=== PATIENT | female | born 1995 | race American Indian/Alaskan Native ===

== ENCOUNTER 2018-08-09 11:47 | Emergency (ER) | payer SELFPAY ==
[2018-08-09 12:07] VITALS: BP 135/94
--- NOTE | 2018-08-09 12:08 | Emergency Department Report ---
Blank Doc - Documentation Documentation: This is a 22-year-old female that presents with intermittent chest pain. Denies any raidation. Curretnly patient denies chest pain. Also has left lower back pain. This initial assessment/diagnostic orders/clinical plan/treatment(s) is/are subject to change based on patient's health status, clinical progression and re- assessment by fellow clinical providers in the ED. Further treatment and workup at subsequent clinical providers discretion. Patient/guardians urged not to elope from the ED as their condition may be serious if not clinically assessed and managed. Initial orders include: 1- Patient sent to [facility] for further evaluation and treatment 2- EKG 3- CXR
--- NOTE | 2018-08-09 12:42 | XRay Report ---
ROUTINE CHEST, TWO VIEWS: HISTORY: chest pain. The trachea, heart, mediastinal contour, lung becerra and bony thorax are unremarkable. IMPRESSION: Unremarkable chest x-ray.
--- NOTE | 2018-08-09 13:01 | Emergency Department Report ---
ED Chest Pain HPI - General Chief Complaint: Chest Pain Stated Complaint: CHEST PAIN Time Seen by Provider: 08/09/18 12:06 Source: patient Mode of arrival: Ambulatory Limitations: No Limitations - History of Present Illness Initial Comments: Ms. Buenrostro is a healthy 22-year-old male female who presents with chest pain and right-sided radiating to the back. She has sharp stinging type pain. Has had bilateral nipple tenderness. She has been under a lot of stress. She recently moved from clots were seen. He states that "people" are stressing her. MD Complaint: chest pain -: Gradual, week(s) (several) Onset: during rest Pain Location: right chest Severity: mild Quality: sharp Consistency: intermittent Improves With: nothing, rest Worsens With: nothing - Related Data Previous Rx's Medication Instructions Recorded Last Taken Type glipiZIDE [Glucotrol] 5 mg PO QDAY 14 Days #14 tablet 07/15/18 Unknown Rx metFORMIN [Glucophage] 500 mg PO BID 15 Days #30 tablet 07/15/18 Unknown Rx Allergies Allergy/AdvReac Type Severity Reaction Status Date / Time No Known Allergies Allergy Verified 08/09/18 12:04 Heart Score - HEART Score History: Slightly suspicious EKG: Normal Age: < 45 Risk factors: No known risk factors Troponin: < normal limit HEART Score: 0 ED Review of Systems ROS: Stated complaint: CHEST PAIN Other details as noted in HPI Comment: All other systems reviewed and negative Constitutional: denies: fever Eyes: denies: eye discharge Respiratory: denies: cough Cardiovascular: chest pain ED Past Medical Hx - Past Medical History Previous Medical History?: Yes Hx Hypertension: Yes Hx Diabetes: Yes - Surgical History Past Surgical History?: No - Social History Smoking Status: Never Smoker Substance Use Type: None - Medications Home Medications: Home Medications Medication Instructions Recorded Confirmed Last Taken Type glipiZIDE [Glucotrol] 5 mg PO QDAY 14 Days #14 tablet 07/15/18 Unknown Rx metFORMIN [Glucophage] 500 mg PO BID 15 Days #30 tablet 07/15/18 Unknown Rx ED Physical Exam - General Limitations: No Limitations General appearance: alert, in no apparent distress - Head Head exam: Present: atraumatic, normocephalic - Eye Eye exam: Present: normal appearance - ENT ENT exam: Present: mucous membranes moist - Neck Neck exam: Present: normal inspection, full ROM - Respiratory Respiratory exam: Present: normal lung sounds bilaterally. Absent: respiratory distress, wheezes, rales, rhonchi - Cardiovascular Cardiovascular Exam: Present: regular rate, normal rhythm, normal heart sounds. Absent: systolic murmur, diastolic murmur, rubs, gallop - GI/Abdominal GI/Abdominal exam: Present: soft, normal bowel sounds. Absent: distended, tenderness, guarding, rebound - Extremities Exam Extremities exam: Present: normal inspection - Back Exam Back exam: Present: normal inspection - Neurological Exam Neurological exam: Present: alert, oriented X3 - Psychiatric Psychiatric exam: Present: normal affect, normal mood - Skin Skin exam: Present: warm, dry, intact, normal color. Absent: rash ED Course Vital Signs 08/09/18 12:05 Temperature 98.7 F Pulse Rate 106 H Respiratory 16 Rate Blood Pressure 135/94 O2 Sat by Pulse 100 Oximetry ED Medical Decision Making - EKG Data 08/09/18 12:58 EKG obtained 1211 Normal sinus rhythm rate 90 beats a minute normal axis normal intervals no ST elevation right bundle branch block no signs of ischemia - Radiology Data Radiology results: report reviewed Chest x-ray according to radiology impression no acute process. - Medical Decision Making Ms. Buenrostro presents with migrating chest pain. PERC negative for PE. Possible chest wall pain due to prominent breast tissue. Strongly encouraged breast exam. EKG CXR unremarkable. Critical care attestation.: If time is entered above; I have spent that time in minutes in the direct care of this critically ill patient, excluding procedure time. ED Disposition Clinical Impression: Chest pain, Chest wall pain Disposition: DC- TO HOME OR SELFCARE Is pt being admited?: No Does the pt Need Aspirin: No Condition: Stable Instructions: Chest Pain (ED) Forms: Work/School Release Form(ED)
== END 2018-08-09 13:10 | disposition home or self-care (01) ==
LOC: ED 11:47
DX: R07.89 Other chest pain (principal); I10 Essential (primary) hypertension; E11.9 Type 2 diabetes mellitus without complications; Z79.84 Long term (current) use of oral hypoglycemic drugs
CPT/HCPCS: 71046; 93005; 93010

== ENCOUNTER 2018-09-06 11:06 | Emergency (ER) | payer OTHER ==
[2018-09-06] MEDS ORDERED: HumuLIN R IV ONE (11:41)
[2018-09-06] MEDS ORDERED: NACL 0.9% 1000 ML 1,000 ML IV ONE (11:41)
[2018-09-06] MEDS ORDERED: TORADOL IV ONE (11:42)
--- NOTE | 2018-09-06 11:45 | Emergency Department Report ---
ED General Adult HPI - General Chief complaint: Headache Stated complaint: HEADACHE/NAUSEA Source: patient Mode of arrival: Ambulatory Limitations: No Limitations - History of Present Illness Initial comments: This is a 22-year-old -[place] female who presents to the emergency room with nausea, vomiting, any headache since this morning. Patient reports symptoms started Thursday while working she felt dizzy and nauseous without vomiting. When she woke up this morning she had an headache and vomiting. Patient states she been off glipizide for several weeks because she doesn't have insurance or a primary care doctor. Her last menstrual cycle was 08/24/2018 and 0. She also reports diarrhea which she thought was related to metformin. She denies abdominal pain, urinary frequency, urgency, dysuria, fever, chills. -: This morning Location: head Radiation: non-radiation Severity scale (0 -10): 8 Quality: other (throbbing) Consistency: constant Improves with: none Worsens with: none Associated Symptoms: headaches, nausea/vomiting. denies: confusion, chest pain, cough, diaphoresis, fever/chills, loss of appetite, malaise, rash, seizure, shortness of breath, syncope, weakness Treatments Prior to Arrival: NSAID - Related Data Previous Rx's Medication Instructions Recorded Last Taken Type RX: glipiZIDE [Glucotrol] 5 mg PO QDAY 14 Days #14 tablet 07/15/18 Unknown Rx RX: metFORMIN [Glucophage] 500 mg PO BID 15 Days #30 tablet 07/15/18 Unknown Rx Ondansetron [Zofran Odt] 4 mg PO Q8HR PRN #15 tab.rapdis 09/06/18 Unknown Rx RX: glipiZIDE [Glucotrol] 5 mg PO QDAY #30 tablet 09/06/18 Unknown Rx RX: metFORMIN [Glucophage] 500 mg PO BID #60 tablet 09/06/18 Unknown Rx Allergies Allergy/AdvReac Type Severity Reaction Status Date / Time No Known Allergies Allergy Verified 08/09/18 12:04 ED Review of Systems ROS: Stated complaint: HEADACHE/NAUSEA Other details as noted in HPI Constitutional: denies: chills, fever ENT: denies: ear pain, throat pain Respiratory: denies: cough, shortness of breath, wheezing Cardiovascular: denies: chest pain, palpitations Gastrointestinal: nausea, vomiting. denies: abdominal pain, diarrhea Skin: denies: rash, lesions Neurological: headache. denies: weakness, paresthesias Psychiatric: denies: anxiety, depression ED Past Medical Hx - Past Medical History Previous Medical History?: Yes Hx Hypertension: Yes Hx Diabetes: Yes - Surgical History Past Surgical History?: No - Social History Smoking Status: Never Smoker Substance Use Type: None - Medications Home Medications: Home Medications Medication Instructions Recorded Confirmed Last Taken Type RX: glipiZIDE [Glucotrol] 5 mg PO QDAY 14 Days #14 tablet 07/15/18 Unknown Rx RX: metFORMIN [Glucophage] 500 mg PO BID 15 Days #30 tablet 07/15/18 Unknown Rx Ondansetron [Zofran Odt] 4 mg PO Q8HR PRN #15 tab.rapdis 09/06/18 Unknown Rx RX: glipiZIDE [Glucotrol] 5 mg PO QDAY #30 tablet 09/06/18 Unknown Rx RX: metFORMIN [Glucophage] 500 mg PO BID #60 tablet 09/06/18 Unknown Rx ED Physical Exam - General Limitations: No Limitations General appearance: alert, in no apparent distress, obese (morbidly) - ENT ENT exam: Present: mucous membranes moist - Respiratory Respiratory exam: Present: normal lung sounds bilaterally. Absent: respiratory distress - Cardiovascular Cardiovascular Exam: Present: regular rate, normal rhythm. Absent: systolic murmur, diastolic murmur, rubs, gallop - GI/Abdominal GI/Abdominal exam: Present: soft, normal bowel sounds, other (obese abdomen). Absent: distended, tenderness, guarding, rebound, rigid - Neurological Exam Neurological exam: Present: alert, oriented X3, normal gait - Psychiatric Psychiatric exam: Present: normal affect, normal mood - Skin Skin exam: Present: warm, dry, intact, normal color. Absent: rash ED Course Vital Signs 09/06/18 11:12 Temperature 98.1 F Pulse Rate 91 H Respiratory 18 Rate Blood Pressure 163/81 O2 Sat by Pulse 99 Oximetry ED Medical Decision Making - Lab Data Result diagrams: 09/06/18 12:32 09/06/18 12:32 Lab Results 09/06/18 09/06/18 09/06/18 Range/Units 11:17 12:32 12:32 WBC 7.2 (4.5-11.0) K/mm3 RBC 4.76 (3.65-5.03) M/mm3 Hgb 13.0 (10.1-14.3) gm/dl Hct 39.2 (30.3-42.9) % MCV 83 (79-97) fl MCH 27 L (28-32) pg MCHC 33 (30-34) % RDW 13.4 (13.2-15.2) % Plt Count 291 (140-440) K/mm3 Lymph % (Auto) 33.9 (13.4-35.0) % [place] % (Auto) 2.9 (0.0-7.3) % Eos % (Auto) 0.8 (0.0-4.3) % Baso % (Auto) 0.7 (0.0-1.8) % Lymph # 2.5 (1.2-5.4) K/mm3 [place] # 0.2 (0.0-0.8) K/mm3 Eos # 0.1 (0.0-0.4) K/mm3 Baso # 0.1 (0.0-0.1) K/mm3 Seg Neutrophils % 61.7 (40.0-70.0) % Seg Neutrophils # 4.5 (1.8-7.7) K/mm3 Sodium 135 L (137-145) mmol/L Potassium 4.6 (3.6-5.0) mmol/L Chloride 100.3 (98-107) mmol/L Carbon Dioxide 22 (22-30) mmol/L Anion Gap 17 mmol/L BUN 8 (7-17) mg/dL Creatinine 0.4 L (0.7-1.2) mg/dL Estimated GFR > 60 ml/min BUN/Creatinine Ratio 20 % Glucose 328 H (65-100) mg/dL POC Glucose 341 H (70-105) Calcium 8.0 L (8.4-10.2) mg/dL HCG, Qual (Negative) 09/06/18 09/06/18 Range/Units 12:32 13:59 WBC (4.5-11.0) K/mm3 RBC (3.65-5.03) M/mm3 Hgb (10.1-14.3) gm/dl Hct (30.3-42.9) % MCV (79-97) fl MCH (28-32) pg MCHC (30-34) % RDW (13.2-15.2) % Plt Count (140-440) K/mm3 Lymph % (Auto) (13.4-35.0) % [place] % (Auto) (0.0-7.3) % Eos % (Auto) (0.0-4.3) % Baso % (Auto) (0.0-1.8) % Lymph # (1.2-5.4) K/mm3 [place] # (0.0-0.8) K/mm3 Eos # (0.0-0.4) K/mm3 Baso # (0.0-0.1) K/mm3 Seg Neutrophils % (40.0-70.0) % Seg Neutrophils # (1.8-7.7) K/mm3 Sodium (137-145) mmol/L Potassium (3.6-5.0) mmol/L Chloride (98-107) mmol/L Carbon Dioxide (22-30) mmol/L Anion Gap mmol/L BUN (7-17) mg/dL Creatinine (0.7-1.2) mg/dL Estimated GFR ml/min BUN/Creatinine Ratio % Glucose (65-100) mg/dL POC Glucose 268 H (70-105) Calcium (8.4-10.2) mg/dL HCG, Qual Negative (Negative) - Medical Decision Making This is a 22 y.o. female that presents with headache, nausea, and vomiting. History of DM2 and hypertension. Patient is currently only taken metformin at this time. Patient states she doesn't have a PCP or insurance to follow up with. Patient was examined by this provider. Obtained BMP, CBC, and hCG. Review labs. Glucose 341 on admission. Given Regular insulin 7 units twice, NS 1L bolus once, and Toradol. Glucose 268 after treatment and reports feeling better. Start metformin, glipizide, Zofran. Referral to [facility] for follow-up. Discussed plan with patient and agreed to plan. No further questions noted by the patient. Discharged home in stable condition. Critical care attestation.: If time is entered above; I have spent that time in minutes in the direct care of this critically ill patient, excluding procedure time. ED Disposition Clinical Impression: Nausea and vomiting in adult, Gastroenteritis, Elevated glucose Migraine Qualifiers: Migraine type: without aura Status migrainosus presence: with status migrainosus Intractability: not intractable Qualified Code(s): G43.001 - Migraine without aura, not intractable, with status migrainosus Uncontrolled diabetes mellitus Qualifiers: Diabetes mellitus type: type 2 Glycemic state: with hyperglycemia Qualified Code(s): E11.65 - Type 2 diabetes mellitus with hyperglycemia Disposition: DC-01 TO HOME OR SELFCARE Is pt being admited?: No Does the pt Need Aspirin: No Condition: Stable Instructions: Diabetes Mellitus Type 2 in Adults (ED), Gastroenteritis (ED), Acute Nausea and Vomiting (ED) Additional Instructions: Never discontinue medication without discussion with doctor first. Return to ER or f/u with ER promptly is blood glucose drops below 70 or greater than 150 so that therapy may be adjusted. Eat a carbohydrate snack prior to exercise if blood glucose is less than 100. Follow up with Primary Care Provider from the referral list below in the next 3- 5 days. Prescriptions: RX: metFORMIN [Glucophage] 500 mg PO BID #60 tablet RX: glipiZIDE [Glucotrol] 5 mg PO QDAY #30 tablet Ondansetron [Zofran Odt] 4 mg PO Q8HR PRN #15 tab.rapdis PRN Reason: Nausea And Vomiting Referrals: [facility] [Outside] - 3-5 Days [facility] [Outside] - 3-5 Days [facility] [Outside] - 3-5 Days Forms: Work/School Release Form(ED) Time of Disposition: 14:24
[2018-09-06 12:41] LABS: Basophils # (Auto) 0.1 K/mm3 (0.0-0.1); Basophils % (Auto) 0.7 % (0.0-1.8); Eosinophils # (Auto) 0.1 K/mm3 (0.0-0.4); Eosinophils % (Auto) 0.8 % (0.0-4.3); Hematocrit 39.2 % (30.3-42.9); Lymphocytes # (Auto) 2.5 K/mm3 (1.2-5.4); Lymphocytes % (Auto) 33.9 % (13.4-35.0); Mean Corpuscular HGB Conc 33 % (30-34); Mean Corpuscular Volume 83 fl (79-97); Monocytes # (Auto) 0.2 K/mm3 (0.0-0.8); Monocytes % (Auto) 2.9 % (0.0-7.3); Platelet Count 291 K/mm3 (140-440); Red Blood Count 4.76 M/mm3 (3.65-5.03); Red Cell Distribution Width 13.4 % (13.2-15.2)
[2018-09-06 13:01] LABS: BUN/Creatinine Ratio 20; Blood Urea Nitrogen 8 mg/dL (7-17); Hemolysis Index 129
[2018-09-06 14:45] VITALS: BP 129/75
== END 2018-09-06 14:43 | disposition home or self-care (01) ==
LOC: ED 11:06
DX: K52.9 Noninfective gastroenteritis and colitis, unspecified (principal); E11.65 Type 2 diabetes mellitus with hyperglycemia; G43.001 Migraine without aura, not intractable, with status migrainosus; I10 Essential (primary) hypertension; Z79.84 Long term (current) use of oral hypoglycemic drugs
CPT/HCPCS: 36415; 80048; 82962; 84703; 85025; 96361; 96374; 96375; 99283; J1885; J7030; J1815

== ENCOUNTER 2018-09-13 11:23 | Emergency (ER) | payer OTHER ==
[2018-09-13 11:46] VITALS: BP 147/77
--- NOTE | 2018-09-13 11:46 | Event Note ---
ED Screening Note ED Screening Note: pt presents with nausea for a week frontal MEJÍA no emesis no fever states she got a rash to zofran that she was prescribed last week, rash resolved on its own PMHx DM This initial assessment/diagnostic orders/clinical plan/treatment(s) is/are subject to change based on patients health status, clinical progression and re- assessment by fellow clinical providers in the ED. Further treatment and workup at subsequent clinical providers discretion. Patient/guardian urged not to elope from the ED as their condition may be serious if not clinically assessed and managed. Initial orders include: UA, urine preg, accucheck
[2018-09-13 12:39] LABS: Bilirubin,Urine NEG (Negative); Blood,Urine NEG (Negative); Color,Urine Yellow (Yellow); Mucus,Urine FEW /HPF; Protein,Urine <15 mg/dL mg/dL (Negative); Urobilinogen,Urine < 2.0 mg/dL (<2.0)
[2018-09-13 12:58] LABS: HCG Qualitative,Urine Negative (Negative)
[2018-09-13] MEDS ORDERED: REGLAN IV ONE (12:58)
[2018-09-13] MEDS ORDERED: NACL 0.9% 1000 ML 1,000 ML IV ONE (12:58)
[2018-09-13] MEDS ORDERED: PEPCID IV ONE (12:58)
[2018-09-13] MEDS ORDERED: ZOFRAN IV ONE (12:58)
--- NOTE | 2018-09-13 14:20 | Emergency Department Report ---
ED Abdominal Pain HPI - General Chief Complaint: Nausea/Vomiting/Diarrhea Stated Complaint: NAUSEA/ALLERGIC REACTION/RASH Time Seen by Provider: 09/13/18 11:43 Source: patient Mode of arrival: Ambulatory Limitations: No Limitations - History of Present Illness Initial Comments: Patient is a 22-year-old Female who is presenting with some mild nausea and epigastric discomfort for the past 2 weeks. Patient was here several weeks ago and needed refill of his diabetes medications. Patient also has some gastroparesis/gastritis present. Patient started on Zofran. Patient states since she's been taking Zofran been having a lot of itching. Patient states that she has a faint rash. Patient stopped taking Zofran and states that her itching is improved. Patient denies any difficulty swallowing shortness of breath at this time. - Related Data Previous Rx's Medication Instructions Recorded Last Taken Type glipiZIDE [Glucotrol] 5 mg PO QDAY 14 Days #14 tablet 07/15/18 Unknown Rx metFORMIN [Glucophage] 500 mg PO BID 15 Days #30 tablet 07/15/18 Unknown Rx Ondansetron [Zofran Odt] 4 mg PO Q8HR PRN #15 tab.rapdis 09/06/18 Unknown Rx glipiZIDE [Glucotrol] 5 mg PO QDAY #30 tablet 09/06/18 Unknown Rx metFORMIN [Glucophage] 500 mg PO BID #60 tablet 09/06/18 Unknown Rx Famotidine [Pepcid] 40 mg PO QHS #10 tablet 09/13/18 Unknown Rx Metoclopramide HCl [Reglan TAB] 5 mg PO TIDAC #10 tablet 09/13/18 Unknown Rx Allergies Allergy/AdvReac Type Severity Reaction Status Date / Time ondansetron [From Zofran] AdvReac Rash Verified 09/13/18 13:44 ED Review of Systems ROS: Stated complaint: NAUSEA/ALLERGIC REACTION/RASH Other details as noted in HPI Comment: All other systems reviewed and negative ED Past Medical Hx - Past Medical History Previous Medical History?: Yes Hx Hypertension: Yes Hx Diabetes: Yes - Surgical History Past Surgical History?: No - Social History Smoking Status: Never Smoker Substance Use Type: None - Medications Home Medications: Home Medications Medication Instructions Recorded Confirmed Last Taken Type glipiZIDE [Glucotrol] 5 mg PO QDAY 14 Days #14 tablet 07/15/18 Unknown Rx metFORMIN [Glucophage] 500 mg PO BID 15 Days #30 tablet 07/15/18 Unknown Rx Ondansetron [Zofran Odt] 4 mg PO Q8HR PRN #15 tab.rapdis 09/06/18 Unknown Rx glipiZIDE [Glucotrol] 5 mg PO QDAY #30 tablet 09/06/18 Unknown Rx metFORMIN [Glucophage] 500 mg PO BID #60 tablet 09/06/18 Unknown Rx Famotidine [Pepcid] 40 mg PO QHS #10 tablet 09/13/18 Unknown Rx Metoclopramide HCl [Reglan TAB] 5 mg PO TIDAC #10 tablet 09/13/18 Unknown Rx ED Physical Exam - General Limitations: No Limitations General appearance: alert, in no apparent distress - Head Head exam: Present: atraumatic, normocephalic - Eye Eye exam: Present: normal appearance - ENT ENT exam: Present: mucous membranes moist - Neck Neck exam: Present: normal inspection - Respiratory Respiratory exam: Present: normal lung sounds bilaterally. Absent: respiratory distress, wheezes, rales, rhonchi - Cardiovascular Cardiovascular Exam: Present: regular rate, normal rhythm. Absent: systolic murmur, diastolic murmur, rubs, gallop - GI/Abdominal GI/Abdominal exam: Present: soft, tenderness (mild epigastric ), normal bowel sounds. Absent: distended, guarding, rebound, rigid - Extremities Exam Extremities exam: Present: normal inspection - Back Exam Back exam: Present: normal inspection - Neurological Exam Neurological exam: Present: alert, oriented X3 - Psychiatric Psychiatric exam: Present: normal affect, normal mood - Skin Skin exam: Present: warm, dry, intact, normal color. Absent: rash ED Course Vital Signs 09/13/18 11:44 Temperature 98.5 F Pulse Rate 84 Respiratory 18 Rate Blood Pressure 147/77 O2 Sat by Pulse 99 Oximetry ED Medical Decision Making - Lab Data Lab Results 09/13/18 09/13/18 Range/Units 11:55 Unknown POC Glucose 252 H (70-105) Urine Color Yellow (Yellow) Urine Turbidity Clear (Clear) Urine pH 6.0 (5.0-7.0) Ur Specific [place] 1.017 (1.003-1.030) Urine Protein <15 mg/dl (Negative) mg/dL Urine Glucose (UA) >=500 (Negative) mg/dL Urine Ketones Neg (Negative) mg/dL Urine Blood Neg (Negative) Urine Nitrite Neg (Negative) Urine Bilirubin Neg (Negative) Urine Urobilinogen < 2.0 (<2.0) mg/dL Ur Leukocyte Esterase Neg (Negative) Urine WBC (Auto) 1.0 (0.0-6.0) /HPF Urine RBC (Auto) 1.0 (0.0-6.0) /HPF U Epithel Cells (Auto) 3.0 (0-13.0) /HPF Urine Mucus Few /HPF Urine HCG, Qual Negative (Negative) - Medical Decision Making Patient did have a slight elevation of her glucose. Patient given IV fluids. Patient started on Reglan and she did well with this medication. Patient be discharged home with Reglan and patient will have her Connie DC'd. Patient follow-up with gastroenterology. Critical care attestation.: If time is entered above; I have spent that time in minutes in the direct care of this critically ill patient, excluding procedure time. ED Disposition Clinical Impression: Hyperglycemia, Drug allergy Gastritis Qualifiers: Gastritis type: unspecified gastritis Chronicity: acute Gastritis bleeding: without bleeding Qualified Code(s): K29.00 - Acute gastritis without bleeding Disposition: DC-01 TO HOME OR SELFCARE Is pt being admited?: No Does the pt Need Aspirin: No Condition: Stable Instructions: Gastritis (ED) Referrals: YURIDIA SALINAS MD [Staff Physician] - 3-5 Days Time of Disposition: 14:19
== END 2018-09-13 14:52 | disposition home or self-care (01) ==
LOC: ED 11:23
DX: K29.00 Acute gastritis without bleeding (principal); E11.65 Type 2 diabetes mellitus with hyperglycemia; I10 Essential (primary) hypertension; Z79.899 Other long term (current) drug therapy; Z88.8 Allergy status to other drugs, medicaments and biological substances
CPT/HCPCS: 81001; 81025; 82962; 96361; 96374; 96375; 99283; J2405; J2765; J7030

== ENCOUNTER 2018-11-12 11:03 | Emergency (ER) | payer SELFPAY ==
[2018-11-12 11:34] VITALS: BP 134/91
--- NOTE | 2018-11-12 11:37 | Emergency Department Report ---
- General Chief complaint: Pain General Stated complaint: DISCOMFORT IN BOTH BREASTS Time Seen by Provider: 11/12/18 11:35 Source: patient Mode of arrival: Ambulatory Limitations: No Limitations - History of Present Illness Initial comments: 23 y/o female comes for breast itching that is intermittent. No new food, no new clothes no new detergents. No redness no rashes. No discharge. Onset/Timin -: days(s) Tetanus Up to Date: unsure Severity scale (0 -10): 0 Quality: other (itching) Consistency: intermittent Improves with: none Worsens with: none Associated symptoms: denies other symptoms, itching Treatments Prior to Arrival: none - Related Data Previous Rx's Medication Instructions Recorded Last Taken Type glipiZIDE [Glucotrol] 5 mg PO QDAY 14 Days #14 tablet 07/15/18 Unknown Rx metFORMIN [Glucophage] 500 mg PO BID 15 Days #30 tablet 07/15/18 Unknown Rx Ondansetron [Zofran Odt] 4 mg PO Q8HR PRN #15 tab.rapdis 09/06/18 Unknown Rx glipiZIDE [Glucotrol] 5 mg PO QDAY #30 tablet 09/06/18 Unknown Rx metFORMIN [Glucophage] 500 mg PO BID #60 tablet 09/06/18 Unknown Rx Famotidine [Pepcid] 40 mg PO QHS #10 tablet 09/13/18 Unknown Rx Metoclopramide HCl [Reglan TAB] 5 mg PO TIDAC #10 tablet 09/13/18 Unknown Rx Allergies Allergy/AdvReac Type Severity Reaction Status Date / Time ondansetron [From Zofran] AdvReac Rash Verified 11/12/18 11:06 Abscess Boil HPI - HPI Chief Complaint: Pain General Stated Complaint: DISCOMFORT IN BOTH BREASTS Time Seen by Provider: 11/12/18 11:35 Home Medications: Previous Rx's Medication Instructions Recorded Last Taken Type glipiZIDE [Glucotrol] 5 mg PO QDAY 14 Days #14 tablet 07/15/18 Unknown Rx metFORMIN [Glucophage] 500 mg PO BID 15 Days #30 tablet 07/15/18 Unknown Rx Ondansetron [Zofran Odt] 4 mg PO Q8HR PRN #15 tab.rapdis 09/06/18 Unknown Rx glipiZIDE [Glucotrol] 5 mg PO QDAY #30 tablet 09/06/18 Unknown Rx metFORMIN [Glucophage] 500 mg PO BID #60 tablet 09/06/18 Unknown Rx Famotidine [Pepcid] 40 mg PO QHS #10 tablet 09/13/18 Unknown Rx Metoclopramide HCl [Reglan TAB] 5 mg PO TIDAC #10 tablet 09/13/18 Unknown Rx Allergies/Adverse Reactions: Allergies Allergy/AdvReac Type Severity Reaction Status Date / Time ondansetron [From Zofran] AdvReac Rash Verified 11/12/18 11:06 ED Review of Systems ROS: Stated complaint: DISCOMFORT IN BOTH BREASTS Other details as noted in HPI Comment: All other systems reviewed and negative Constitutional: denies: chills, fever Eyes: denies: eye pain, eye discharge, vision change ENT: denies: ear pain, throat pain Respiratory: denies: cough, shortness of breath, wheezing Cardiovascular: denies: chest pain, palpitations ED Past Medical Hx - Past Medical History Previous Medical History?: Yes Hx Hypertension: Yes Hx Diabetes: Yes - Surgical History Past Surgical History?: No - Social History Smoking Status: Never Smoker Substance Use Type: None - Medications Home Medications: Home Medications Medication Instructions Recorded Confirmed Last Taken Type glipiZIDE [Glucotrol] 5 mg PO QDAY 14 Days #14 tablet 07/15/18 Unknown Rx metFORMIN [Glucophage] 500 mg PO BID 15 Days #30 tablet 07/15/18 Unknown Rx Ondansetron [Zofran Odt] 4 mg PO Q8HR PRN #15 tab.rapdis 09/06/18 Unknown Rx glipiZIDE [Glucotrol] 5 mg PO QDAY #30 tablet 09/06/18 Unknown Rx metFORMIN [Glucophage] 500 mg PO BID #60 tablet 09/06/18 Unknown Rx Famotidine [Pepcid] 40 mg PO QHS #10 tablet 09/13/18 Unknown Rx Metoclopramide HCl [Reglan TAB] 5 mg PO TIDAC #10 tablet 09/13/18 Unknown Rx ED Physical Exam - General Limitations: No Limitations General appearance: alert, in no apparent distress - Head Head exam: Present: atraumatic, normocephalic - Eye Eye exam: Present: normal appearance - ENT ENT exam: Present: mucous membranes moist - Neck Neck exam: Present: normal inspection - Respiratory Respiratory exam: Present: normal lung sounds bilaterally, chest wall tenderness (Breast no erythmatous, non tenderness no discharge normal ). Absent: respiratory distress - Cardiovascular Cardiovascular Exam: Present: regular rate, normal rhythm. Absent: systolic murmur, diastolic murmur, rubs, gallop - GI/Abdominal GI/Abdominal exam: Present: soft, normal bowel sounds - Neurological Exam Neurological exam: Present: alert, oriented X3, normal gait - Psychiatric Psychiatric exam: Present: normal affect, normal mood - Skin Skin exam: Present: warm, dry, intact, normal color. Absent: rash ED Course Vital Signs 11/12/18 11:31 Temperature 98.3 F Pulse Rate 79 Respiratory 18 Rate Blood Pressure 134/91 [Right] O2 Sat by Pulse 99 Oximetry ED Medical Decision Making - Medical Decision Making 23 y/o female comes for breast itching that is intermittent. No new food, no new clothes no new detergents. No redness no rashes. No discharge. Recommend to wear cotton bras. Will check HCG. Critical care attestation.: If time is entered above; I have spent that time in minutes in the direct care of this critically ill patient, excluding procedure time. ED Disposition Clinical Impression: Acute breast pain Disposition: DC-01 TO HOME OR SELFCARE Is pt being admited?: No Does the pt Need Aspirin: No Condition: Stable Instructions: Chest Pain (ED) Additional Instructions: Try wearing cotton bras and follow up with a Primary Care provider. You can take over the counter Tylenol as needed for discomfort. Referrals: SANTI MCCLELLAND MD [Primary Care Provider] - 3-5 Days
[2018-11-12 12:20] LABS: HCG Qualitative,Urine Negative (Negative)
== END 2018-11-12 12:21 | disposition home or self-care (01) ==
LOC: ED 11:03
DX: N64.4 Mastodynia (principal); I10 Essential (primary) hypertension; E11.9 Type 2 diabetes mellitus without complications; Z79.899 Other long term (current) drug therapy; Z88.6 Allergy status to analgesic agent
CPT/HCPCS: 81025

== ENCOUNTER 2019-12-31 16:19 | Emergency (ER) | payer SELFPAY | END 2019-12-31 17:35 | disposition left against medical advice (07) | LOC: ED 16:19 | DX: R10.2 Pelvic and perineal pain (principal); Z53.21 Procedure and treatment not carried out due to patient leaving prior to being seen by health care provider ==

== ENCOUNTER 2020-05-23 09:08 | Emergency (ER) | payer SELFPAY ==
[2020-05-23 09:16] VITALS: BP 155/94
[2020-05-23 09:48] LABS: Bilirubin,Urine NEG (Negative); Blood,Urine NEG (Negative); Color,Urine Yellow (Yellow); Mucus,Urine FEW /HPF; Protein,Urine <15 mg/dL mg/dL (Negative); RBC,Urine < 1.0 /HPF (0.0-6.0)
[2020-05-23 09:50] LABS: HCG Qualitative,Urine Negative (Negative)
== END 2020-05-23 10:58 | disposition left against medical advice (07) ==
LOC: ED 09:08
DX: R11.0 Nausea (principal); Z53.21 Procedure and treatment not carried out due to patient leaving prior to being seen by health care provider
CPT/HCPCS: 81001; 81025; 82962

== ENCOUNTER 2021-05-30 14:40 | Inpatient (IN) | payer SELFPAY ==
[2021-05-30] MEDS ORDERED: diphenhydrAMINE 50 MG/ML VIAL IV ONE (20:54)
[2021-05-30] MEDS ORDERED: FAMOTIDINE 20 MG/2 ML INJ IV ONE (20:54)
[2021-05-30] MEDS ORDERED: SODIUM CHLORIDE 0.9% 1000 ML 1,000 ML IV ONE ×2 (20:54→22:25)
[2021-05-30 21:12] LABS: Mean Corpuscular HGB Conc 30 % (30-34); Mean Corpuscular Volume 87 fl (79-97); Platelet Count 349 K/mm3 (140-440); Red Blood Count 6.18 M/mm3 (3.65-5.03); Red Cell Distribution Width 14.4 % (13.2-15.2)
--- NOTE | 2021-05-30 21:15 | Emergency Department Report ---
ED General Adult HPI - General Chief complaint: Nausea/Vomiting/Diarrhea Stated complaint: GENERAL WEAKNESS/N/V Time Seen by Provider: 05/30/21 20:46 Source: patient, EMS Mode of arrival: Stretcher Limitations: No Limitations - History of Present Illness Initial comments: Patient is a 25-year-old female presents emergency room complaints of nausea and vomiting that began yesterday. She states that she is having normal bowel movements and denies any blood in her stool. She states that she had a last bowel movement yesterday. Patient has upper abdominal discomfort and states that she has a history of gastritis. She denies any fever, chills, ashley tochezia, melena, hematemesis, urinary symptoms. He has a past medical history of diabetes and states that she does not take her Metformin because she does not like how it makes her feel. She states that she does not have a primary care physician. Allergy to Zofran. Severity scale (0 -10): 0 - Related Data Previous Rx's Medication Instructions Recorded Last Taken Type glipiZIDE [Glucotrol] 5 mg PO QDAY 14 Days #14 tablet 07/15/18 Unknown Rx metFORMIN [Glucophage] 500 mg PO BID 15 Days #30 tablet 07/15/18 Unknown Rx Ondansetron [Zofran Odt] 4 mg PO Q8HR PRN #15 tab.rapdis 09/06/18 Unknown Rx glipiZIDE [Glucotrol] 5 mg PO QDAY #30 tablet 09/06/18 Unknown Rx metFORMIN [Glucophage] 500 mg PO BID #60 tablet 09/06/18 Unknown Rx Famotidine [Pepcid] 40 mg PO QHS #10 tablet 09/13/18 Unknown Rx Metoclopramide HCl [Reglan TAB] 5 mg PO TIDAC #10 tablet 09/13/18 Unknown Rx Allergies Allergy/AdvReac Type Severity Reaction Status Date / Time ondansetron [From Zofran] AdvReac Rash Verified 05/23/20 09:12 ED Review of Systems ROS: Stated complaint: GENERAL WEAKNESS/N/V Other details as noted in HPI Comment: All other systems reviewed and negative ED Past Medical Hx - Past Medical History Hx Hypertension: Yes Hx Diabetes: Yes - Social History Smoking Status: Never Smoker Substance Use Type: None - Medications Home Medications: Home Medications Medication Instructions Recorded Confirmed Last Taken Type glipiZIDE [Glucotrol] 5 mg PO QDAY 14 Days #14 tablet 07/15/18 Unknown Rx metFORMIN [Glucophage] 500 mg PO BID 15 Days #30 tablet 07/15/18 Unknown Rx Ondansetron [Zofran Odt] 4 mg PO Q8HR PRN #15 tab.rapdis 09/06/18 Unknown Rx glipiZIDE [Glucotrol] 5 mg PO QDAY #30 tablet 09/06/18 Unknown Rx metFORMIN [Glucophage] 500 mg PO BID #60 tablet 09/06/18 Unknown Rx Famotidine [Pepcid] 40 mg PO QHS #10 tablet 09/13/18 Unknown Rx Metoclopramide HCl [Reglan TAB] 5 mg PO TIDAC #10 tablet 09/13/18 Unknown Rx ED Physical Exam - General Limitations: No Limitations General appearance: alert, in no apparent distress - Head Head exam: Present: atraumatic, normocephalic - Eye Eye exam: Present: normal appearance - ENT ENT exam: Present: mucous membranes dry - Respiratory Respiratory exam: Present: normal lung sounds bilaterally. Absent: respiratory distress, wheezes, rales, rhonchi, stridor, chest wall tenderness, accessory mus alyssa use, decreased breath sounds, prolonged expiratory - Cardiovascular Cardiovascular Exam: Present: normal rhythm, tachycardia - GI/Abdominal GI/Abdominal exam: Present: soft, normal bowel sounds. Absent: distended, ten derness, guarding, rebound, rigid - Neurological Exam Neurological exam: Present: alert, oriented X3 - Psychiatric Psychiatric exam: Present: normal affect, normal mood - Skin Skin exam: Present: warm, dry, intact ED Course Vital Signs 05/30/21 14:47 Pulse Rate 120 H Respiratory 14 Rate Blood Pressure 152/92 [Left] O2 Sat by Pulse 98 Oximetry - Consultations Consultation #1: 05/30/21 22:[address] Rodriguez, accounting consultant regarding patient presentation results, he will consult on patient 05/30/21 22:[address] Abarca, hospitalist regarding patient presentation and results, he will accept and resume care of patient, advised to place patient on [facility] ED Medical Decision Making - Lab Data Result diagrams: 05/30/21 21:02 05/30/21 21:02 Lab Results 05/30/21 05/30/21 05/30/21 Range/Units 21:02 21:02 21:02 WBC 26.0 H (4.5-11.0) K/mm3 RBC 6.18 H (3.65-5.03) M/mm3 Hgb 16.1 H (10.1-14.3) gm/dl Hct 53.5 H (30.3-42.9) % MCV 87 (79-97) fl MCH 26 L (28-32) pg MCHC 30 (30-34) % RDW 14.4 (13.2-15.2) % Plt Count 349 (140-440) K/mm3 Seg Neutrophils % Bucket Turner VBG pH (7.320-7.420) Sodium 132 L (137-145) mmol/L Potassium 4.9 (3.6-5.0) mmol/L Chloride 100.0 (98-107) mmol/L Carbon Dioxide 5 L* (22-30) mmol/L Anion Gap 32 mmol/L BUN 17 (7-17) mg/dL Creatinine 0.8 (0.6-1.2) mg/dL Estimated GFR > 60 ml/min BUN/Creatinine Ratio 21 % Glucose 494 H (65-100) mg/dL Calcium 9.5 (8.4-10.2) mg/dL Total Bilirubin 0.60 (0.1-1.2) mg/dL AST 11 (5-40) units/L ALT 42 (7-56) units/L Alkaline Phosphatase 118 (35-129) units/L Total Protein 9.3 H (6.3-8.2) g/dL Albumin 4.7 (3.9-5) g/dL Albumin/Globulin Ratio 1.0 % Lipase 21 (13-60) units/L HCG, Qual Negative (Negative) 05/30/21 Range/Units 21:02 WBC (4.5-11.0) K/mm3 RBC (3.65-5.03) M/mm3 Hgb (10.1-14.3) gm/dl Hct (30.3-42.9) % MCV (79-97) fl MCH (28-32) pg MCHC (30-34) % RDW (13.2-15.2) % Plt Count (140-440) K/mm3 Seg Neutrophils % VBG pH 7.176 L* (7.320-7.420) Sodium (137-145) mmol/L Potassium (3.6-5.0) mmol/L Chloride (98-107) mmol/L Carbon Dioxide (22-30) mmol/L Anion Gap mmol/L BUN (7-17) mg/dL Creatinine (0.6-1.2) mg/dL Estimated GFR ml/min BUN/Creatinine Ratio % Glucose (65-100) mg/dL Calcium (8.4-10.2) mg/dL Total Bilirubin (0.1-1.2) mg/dL AST (5-40) units/L ALT (7-56) units/L Alkaline Phosphatase (35-129) units/L Total Protein (6.3-8.2) g/dL Albumin (3.9-5) g/dL Albumin/Globulin Ratio % Lipase (13-60) units/L HCG, Qual (Negative) - Radiology Data Radiology results: report reviewed Ordering Physician: SWAPNIL GALARZA Date of Service: 05/30/21 Procedure(s): CT abdomen pelvis w con Accession Number(s): [id number] cc: SWAPNIL GALARZA CT ABDOMEN AND PELVIS WITH INTRAVENOUS CONTRAST INDICATION / CLINICAL INFORMATION: Upper abdominal pain with nausea and vomiting. Elevated white blood cell count. TECHNIQUE: 100 cc Omnipaque [address] scans at this location are performed using CT dose reduction for ALARA by means of automated exposure control. COMPARISON: None available. FINDINGS: ABDOMEN: The liver measures 16 cm in length and demonstrates moderate generalized decreased density compared to the spleen without focal lesion. The gallbladder, bile ducts, pancreas, spleen, adrenal glands and kidneys are normal in appearance. There is no evidence of bowel obstruction, wall thickening or free air. No adenopathy is present. No vascular abnormality is seen. The lung bases are clear. PELVIS: The urinary bladder is significantly distended, extending to the top of the SI joints. The urinary bladder is otherwise unremarkable. The distal ureters are normal in appearance. The uterus and ovaries are normal in appearance. A normal appendix is present and there is no evidence of diverticulitis. No abnormal mass or fluid collection is seen. I do not identify a hernia. No acute osseous abnormality is present. IMPRESSION: 1. Significantly distended urinary bladder without a cause seen. 2. Borderline hepatomegaly with evidence of moderate diffuse fatty infiltration. Signer Name: Jose Matson MD Signed: 05/30/2021 10:36 PM Workstation Name: [id number] Transcribed By: RT Dictated By: Jose Matson MD Electronically Authenticated By: Jose Matson MD Signed Date/Time: 05/30/212235 DD/ 30 TD/TT: - Medical Decision Making Patient is a 25-year-old female presents emergency room complaints of nausea and vomiting that began yesterday. She states that she is having normal bowel movements and denies any blood in her stool. She states that she had a last bowel movement yesterday. Patient has upper abdominal discomfort and states that she has a history of gastritis. She denies any fever, chills, hematochezia, melena, hematemesis, urinary symptoms. He has a past medical history of diabetes and states that she does not take her Metformin because she does not like how it makes her feel. She states that she does not have a primary care physician. Allergy to Zofran. Vitals with tachycardia, otherwise stable. I was advised by Gildardo material assistant that her temperature is 99.0. Lab significant for white blood cell count 26,000, venous pH 7.1, CO2 5, blood glucose 494. Patient started on 2 L IV fluids, given medication, and initiated DKA order set with insulin drip. CT abdomen pelvis/IV contrast shows 1. S ignificantly distended urinary bladder without a cause seen. 2. Borderline hepatomegaly with evidence of moderate diffuse fatty infiltration. Patient states that she has had issues with her bladder for very long time but states that she is able to urinate without any difficulty. Discussed case with accounting consultant and patient admitted to hospitalist service. Discussed all findings with patient who is agreeable with plan. Critical Care Time: Yes Critical care time in (mins) excluding proc time.: 40 Critical care attestation.: If time is entered above; I have spent that time in minutes in the direct care of this critically ill patient, excluding procedure time. ED Disposition Clinical Impression: DKA (diabetic ketoacidosis) Qualifiers: Diabetes mellitus type: type 2 Diabetes mellitus complication detail: without coma Qualified Code(s): E11.10 - Type 2 diabetes mellitus with ketoacidosis without coma Leukocytosis Qualifiers: Leukocytosis type: unspecified Qualified Code(s): D72.829 - Elevated white blood cell count, unspecified Abdominal pain Qualifiers: Abdominal location: upper abdomen, unspecified Qualified Code(s): R10.10 - Upper abdominal pain, unspecified Nausea & vomiting Qualifiers: Vomiting type: unspecified Qualified Code(s): R11.2 - Nausea with vomiting, unspecified Disposition: 09 ADMITTED INPATIENT Is pt being admited?: Yes Does the pt Need Aspirin: No Condition: Critical Time of Disposition: 23:00
[2021-05-30 21:17] LABS: Hematocrit 53.5 % (30.3-42.9); Hemoglobin 16.1 gm/dl (10.1-14.3)
[2021-05-30 21:37] LABS: Alanine Aminotransferase 42 units/L (7-56); Albumin 4.7 g/dL (3.9-5); BUN/Creatinine Ratio 21; Blood Urea Nitrogen 17 mg/dL (7-17); Calcium 9.5 mg/dL (8.4-10.2); Hemolysis Index 18
[2021-05-30] MEDS: METOCLOPRAMIDE 10 MG/2 ML INJ IV ONE ×2 (21:39→21:41)
[2021-05-30] MEDS ORDERED: DEXTROSE 50% IN WATER (25GM) 50 ML SYRINGE IV PRN ×2 (21:41→23:14)
--- NOTE | 2021-05-30 22:41 | Cat Scan Report ---
CT ABDOMEN AND PELVIS WITH INTRAVENOUS CONTRAST INDICATION / CLINICAL INFORMATION: Upper abdominal pain with nausea and vomiting. Elevated white bloo d cell count. TECHNIQUE: 100 cc Omnipaque [address] scans at this location are performed using CT d ose reduction for ALARA by means of automated exposure control. COMPARISON: None available. FINDINGS: ABDOMEN: The liver measures 16 cm in length and demonstrates moderate generalized decreased density c ompared to the spleen without focal lesion. The gallbladder, bile ducts, pancreas, spleen, adrenal glands and kidneys are normal in appearance. T here is no evidence of bowel obstruction, wall thickening or free air. No adenopathy is present. No v ascular abnormality is seen. The lung bases are clear. PELVIS: The urinary bladder is significantly distended, extending to the top of the SI joints. The ur inary bladder is otherwise unremarkable. The distal ureters are normal in appearance. The uterus and ovaries are normal in appearance. A normal appendix is present and there is no evidenc e of diverticulitis. No abnormal mass or fluid collection is seen. I do not identify a hernia. No acu te osseous abnormality is present. IMPRESSION: 1. Significantly distended urinary bladder without a cause seen. 2. Borderline hepatomegaly with evidence of moderate diffuse fatty infiltration. Signer Name: Jose Matson MD Signed: 05/30/2021 10:36 PM Workstation Name: [id number]
[2021-05-30] MEDS ORDERED: PIPERACIL/TAZOBACTA 4.5/NS 100 4.5 GM/100 ML VIAL IV ONE (22:58)
[2021-05-30] MEDS ORDERED: HYDROmorphone 1 MG/1 ML INJ IV PRN (23:14)
[2021-05-30] MEDS ORDERED: ONDANSETRON 4 MG/2 ML INJ IV PRN (23:14)
[2021-05-30] MEDS ORDERED: ALBUTEROL 2.5 MG/3 ML NEBU IH PRN (23:14)
[2021-05-30] MEDS ORDERED: MORPHINE 2 MG/1 ML INJ IV PRN (23:14)
--- NOTE | 2021-05-30 23:21 | History and Physical Report ---
History of Present Illness Date of examination: 05/30/21 Date of admission: 05/30/21 Chief complaint: Nausea vomiting hyperglycemia History of present illness: 25-year-old female with history of diabetes and gastritis was brought to the emergency room because of nausea and vomiting that began yesterday. She states that she is having normal bowel movements and denies any blood in her stool. She states that she had a last bowel movement yesterday. She denies any fever, chills, hematochezia, melena, hematemesis, urinary symptoms. she does not take her Metformin because she does not like how it makes her feel. She states that she does not have a primary care physician. Allergy to Zofran. In the emergency room patient is found to have DKA. Patient blood glucose is 494, bicarb 5 anion gap 32. White blood cell 26.0. So going to admit the patient to the ICU. We put the patient on insulin drip IV fluid IV antibiotic and consult critical care Past History Past Medical History: diabetes, other Past Surgical History: No surgical history (Gastritis) Social history: other (No smoking) Family history: diabetes Medications and Allergies Allergies Allergy/AdvReac Type Severity Reaction Status Date / Time ondansetron [From Zofran] AdvReac Rash Verified 05/23/20 09:12 Home Medications Medication Instructions Recorded Confirmed Last Taken Type glipiZIDE [Glucotrol] 5 mg PO QDAY 14 Days #14 tablet 07/15/18 Unknown Rx metFORMIN [Glucophage] 500 mg PO BID 15 Days #30 tablet 07/15/18 Unknown Rx Ondansetron [Zofran Odt] 4 mg PO Q8HR PRN #15 tab.rapdis 09/06/18 Unknown Rx glipiZIDE [Glucotrol] 5 mg PO QDAY #30 tablet 09/06/18 Unknown Rx metFORMIN [Glucophage] 500 mg PO BID #60 tablet 09/06/18 Unknown Rx Famotidine [Pepcid] 40 mg PO QHS #10 tablet 09/13/18 Unknown Rx Metoclopramide HCl [Reglan TAB] 5 mg PO TIDAC #10 tablet 09/13/18 Unknown Rx Active Meds: Active Medications Dextrose (Dextrose 50% In Water (25gm) 50 Ml Syringe) 0 ml IV Q30MIN PRN; Protocol PRN Reason: Hypoglycemia Insulin Human Regular 100 (units/ Sodium Chloride) 100 mls @ 1 mls/hr IV TITR REFUGIO; Protocol Sodium Chloride (Nacl 0.9% 1000 Ml) 1,000 mls @ 999 mls/hr IV BOLUS ONE Stop: 05/30/21 23:25 Piperacillin Sod/Tazobactam Sod (Zosyn/Ns 4.5gm/100ml) 4.5 gm in 100 mls @ 200 mls/hr IV ONCE ONE; Protocol Stop: 05/30/21 23:27 Review of Systems Gastrointestinal: nausea, vomiting, diarrhea, heartburn, indigestion Exam - Constitutional Vitals: Temp Pulse Resp BP Pulse Ox 120 H 14 152/92 98 05/30/21 14:47 05/30/21 14:47 05/30/21 14:47 05/30/21 14:47 General appearance: Present: no acute distress, well-nourished - EENT Eyes: Present: PERRL ENT: hearing intact, clear oral mucosa - Neck Neck: Present: supple, normal ROM - Respiratory Respiratory effort: normal Respiratory: bilateral: diminished - Cardiovascular Heart Sounds: Present: S1 & S2. Absent: rub, click - Extremities Extremities: pulses symmetrical, No edema Peripheral Pulses: within normal limits - Abdominal General gastrointestinal: Present: soft, non-tender, non-distended, normal bowel sounds Female genitourinary: Present: normal - Integumentary Integumentary: Present: clear, warm, dry - Musculoskeletal Musculoskeletal: gait normal, strength equal bilaterally - Psychiatric Psychiatric: appropriate mood/affect, intact judgment & insight - Neurologic Neurologic: CNII-XII intact, moves all extremities Results - Labs CBC & Chem 7: 05/30/21 21:02 05/30/21 21:02 Labs: Laboratory Last Values WBC 26.0 K/mm3 (4.5-11.0) H 05/30/21 21:02 RBC 6.18 M/mm3 (3.65-5.03) H 05/30/21 21:02 Hgb 16.1 gm/dl (10.1-14.3) H 05/30/21 21:02 Hct 53.5 % (30.3-42.9) H 05/30/21 21:02 MCV 87 fl (79-97) 05/30/21 21:02 MCH 26 pg (28-32) L 05/30/21 21:02 MCHC 30 % (30-34) 05/30/21 21:02 RDW 14.4 % (13.2-15.2) 05/30/21 21:02 Plt Count 349 K/mm3 (140-440) 05/30/21 21:02 Seg Neutrophils % Transportation Program Director 05/30/21 21:02 VBG pH 7.176 (7.320-7.420) L* 05/30/21 21:02 Sodium 132 mmol/L (137-145) L 05/30/21 21:02 Potassium 4.9 mmol/L (3.6-5.0) 05/30/21 21:02 Chloride 100.0 mmol/L (98-107) 05/30/21 21:02 Carbon Dioxide 5 mmol/L (22-30) L* 05/30/21 21:02 Anion Gap 32 mmol/L 05/30/21 21:02 BUN 17 mg/dL (7-17) 05/30/21 21:02 Creatinine 0.8 mg/dL (0.6-1.2) 05/30/21 21:02 Estimated GFR > 60 ml/min 05/30/21 21:02 BUN/Creatinine Ratio 21 % 05/30/21 21:02 Glucose 494 mg/dL (65-100) H 05/30/21 21:02 Calcium 9.5 mg/dL (8.4-10.2) 05/30/21 21:02 Total Bilirubin 0.60 mg/dL (0.1-1.2) 05/30/21 21:02 AST 11 units/L (5-40) 05/30/21 21:02 ALT 42 units/L (7-56) 05/30/21 21:02 Alkaline Phosphatase 118 units/L (35-129) 05/30/21 21:02 Total Protein 9.3 g/dL (6.3-8.2) H 05/30/21 21:02 Albumin 4.7 g/dL (3.9-5) 05/30/21 21:02 Albumin/Globulin Ratio 1.0 % 05/30/21 21:02 Lipase 21 units/L (13-60) 05/30/21 21:02 HCG, Qual Negative (Negative) 05/30/21 21:02 - Imaging and Cardiology CT scan - abdomen: report reviewed Assessment and Plan VTE prophylaxis?: Chemical Plan of care discussed with patient/family: Yes - Patient Problems (1) DKA (diabetic ketoacidosis) Current Visit: Yes Status: Acute Qualifiers: Diabetes mellitus type: type 2 Diabetes mellitus complication detail: without coma Qualified Code(s): E11.10 - Type 2 diabetes mellitus with ketoacidosis without coma Plan to address problem: Admit the patient to the ICU. NPO. Half-normal saline at the rate of 150 cc/h. Insulin drip as per protocol. Serial BMP. Critical care evaluation (2) Gastritis Current Visit: Yes Status: Acute Plan to address problem: Pepcid 20 mg IV every 12 hours. We will monitor the patient closely (3) Abdominal pain Current Visit: Yes Status: Acute Qualifiers: Abdominal location: upper abdomen, unspecified Qualified Code(s): R10.10 - Upper abdominal pain, unspecified Plan to address problem: NPO. Half-normal saline at the rate of 150 cc/h. Pepcid 20 mg IV every 12 hours. Zofran 4 million IV every 6 hours as needed. Morphine 2 mg IV every 4 hours as needed (4) Nausea & vomiting Current Visit: Yes Status: Acute Qualifiers: Vomiting type: unspecified Qualified Code(s): R11.2 - Nausea with vomiting, unspecified Plan to address problem: NPO. Half-normal saline at the rate of 150 cc/h. Pepcid 20 mg IV every 12 hours. Zofran 4 million IV every 6 hours as needed. (5) Leukocytosis Current Visit: Yes Status: Acute Qualifiers: Leukocytosis type: unspecified Qualified Code(s): D72.829 - Elevated white blood cell count, unspecified Plan to address problem: Zosyn 4.5 g IV every 8 hours. Blood culture urine culture. Recheck CBC in the morning (6) DVT prophylaxis Current Visit: Yes Status: Acute Plan to address problem: Heparin 5000 units subcu every 12 hours for DVT prophylaxis. Pepcid 20 mg IV every 12 hours for GI prophylaxis. Patient is a full code
[2021-05-30] MEDS ORDERED: DEXTROSE 10% *Hypoglycemia IV PRN (23:22)
[2021-05-30] MEDS ORDERED: SODIUM CHLORIDE 0.45% 1000 ML 1,000 ML IV SCH (23:45)
[2021-05-30] MEDS ORDERED: INSULIN REGULAR, HUMAN 100 UNITS in SODIUM CHLORIDE 0.9% 99 ML IV SCH (23:45)
[2021-05-30] MEDS ORDERED: D5W/0.45% NACL/KCL 20 MEQ 20 MEQ/1,000 ML BAG IV SCH (23:45)
[2021-05-31 00:16] LABS: Blood Urea Nitrogen 16 mg/dL (7-17); Calcium 8.7 mg/dL (8.4-10.2); Hemolysis Index 16
[2021-05-31] MEDS: PIPERACIL/TAZOBACTA 4.5/NS 100 4.5 GM/100 ML VIAL IV SCH ×2 (00:20→08:55)
[2021-05-31 00:29] LABS: BUN/Creatinine Ratio 27
[2021-05-31] MEDS: INSULIN REGULAR, HUMAN 100 UNITS in SODIUM CHLORIDE 0.9% 99 ML IV SCH ×2 (02:27→20:25)
[2021-05-31 03:12] LABS: Mean Corpuscular HGB Conc 31 % (30-34); Mean Corpuscular Volume 85 fl (79-97); Platelet Count 348 K/mm3 (140-440); Red Blood Count 5.55 M/mm3 (3.65-5.03)
[2021-05-31 03:13] LABS: Hemoglobin 14.4 gm/dl (10.1-14.3)
[2021-05-31 03:30] LABS: Blood Urea Nitrogen 15 mg/dL (7-17); Calcium 8.4 mg/dL (8.4-10.2); Hemolysis Index 13
[2021-05-31 03:31] LABS: BUN/Creatinine Ratio 21
[2021-05-31] MEDS: METOCLOPRAMIDE 10 MG/2 ML INJ IV PRN ×2 (03:51→11:13)
[2021-05-31 03:59] LABS: Basophils % (Manual) 0 % (0.0-1.8); Eosinophils % (Manual) 0 % (0.0-4.3); Total Cells Counted 100
[2021-05-31 04:01] LABS: Anisocytosis 1+; Platelet Estimate Consistent w Auto
[2021-05-31 05:25] LABS: Blood Urea Nitrogen 14 mg/dL (7-17); Hemolysis Index 11
[2021-05-31 05:58] LABS: Basophils % (Manual) 0 % (0.0-1.8); Eosinophils % (Manual) 0 % (0.0-4.3); Total Cells Counted 100
[2021-05-31 05:59] LABS: Platelet Estimate Consistent w Auto; RBC Morphology Normal
[2021-05-31 06:04] LABS: BUN/Creatinine Ratio 20
[2021-05-31] MEDS ORDERED: D5W/0.45% NACL 1,000 ML IV SCH (07:00)
[2021-05-31 07:41] LABS: Blood Urea Nitrogen 14 mg/dL (7-17); Calcium 8.5 mg/dL (8.4-10.2); Hemolysis Index 75
[2021-05-31 07:47] LABS: BUN/Creatinine Ratio 23
[2021-05-31] MEDS: ACETAMINOPHEN 325 MG TAB PO PRN (08:55)
[2021-05-31] MEDS: FAMOTIDINE 20 MG/2 ML INJ IV SCH ×2 (09:07→22:48)
[2021-05-31] MEDS: HEPARIN 5,000 UNIT/1 ML VIAL SUB-Q SCH ×2 (09:07→22:48)
--- NOTE | 2021-05-31 09:07 | Progress Note ---
Assessment and Plan Assessment and plan: History of present illness: 25-year-old female with history of diabetes and gastritis was brought to the emergency room because of nausea and vomiting that began yesterday. She states that she is having normal bowel movements and denies any blood in her stool. She states that she had a last bowel movement yesterday. She denies any fever, chills, hematochezia, melena, hematemesis, urinary symptoms. she does not take her Metformin because she does not like how it makes her feel. She states that she does not have a primary care physician. Allergy to Zofran. In the emergency room patient is found to have DKA. Patient blood glucose is 494, bicarb 5 anion gap 32. White blood cell 26.0. So going to admit the patient to the ICU. We put the patient on insulin drip IV fluid IV antibiotic and consult critical care Hospital Course: 05/31: Monitor for gap closure. Last BMP shows GAP=19. Can initiate 20 units subq lantus once closed. IV insulin/D5W+K infusion for now. Unclear why she was initiated on abx. Will d/c zosyn for now. Assessment and Plan: (1) DKA (diabetic ketoacidosis) Current Visit: Yes Status: Acute Qualifiers: Diabetes mellitus type: type 2 Diabetes mellitus complication detail: w [facility] coma Qualified Code(s): E11.10 - Type 2 diabetes mellitus with ket oacidosis without coma Plan to address problem: Admit the patient to the ICU. NPO. Half-normal saline at the rate of 150 cc/h. Insulin drip as per protocol. Serial BMP. Critical care evaluation (2) Gastritis Current Visit: Yes Status: Acute Plan to address problem: Pepcid 20 mg IV every 12 hours. We will monitor the patient closely (3) Abdominal pain Current Visit: Yes Status: Acute Qualifiers: Abdominal location: upper abdomen, unspecified Qualified Code(s): R10.10 - Upper abdominal pain, unspecified Plan to address problem: NPO. Half-normal saline at the rate of 150 cc/h. Pepcid 20 mg IV every 12 hours. Zofran 4 million IV every 6 hours as needed. Morphine 2 mg IV every 4 hours as needed (4) Nausea & vomiting Current Visit: Yes Status: Acute Qualifiers: Vomiting type: unspecified Qualified Code(s): R11.2 - Nausea with vomiting, unspecified Plan to address problem: NPO. Half-normal saline at the rate of 150 cc/h. Pepcid 20 mg IV every 12 hours. Zofran 4 million IV every 6 hours as needed. (5) Leukocytosis Current Visit: Yes Status: Acute Qualifiers: Leukocytosis type: unspecified Qualified Code(s): D72.829 - Elevated white blood cell count, unspecified Plan to address problem: Zosyn 4.5 g IV every 8 hours. Blood culture urine culture. Recheck CBC in the morning (6) DVT prophylaxis Current Visit: Yes Status: Acute Plan to address problem: Heparin 5000 units subcu every 12 hours for DVT prophylaxis. Pepcid 20 mg IV every 12 hours for GI prophylaxis. Patient is a full code The high probability of a clinically significant, sudden or life threatening deterioration of the [multi] system(s) required my full and direct attention, intervention and personal management. The aggregate critical care time was [60] minutes. This time is in addition to time spent performing reported procedures but includes the following: [x] Data Review and interpretation [x] Patient assessment and monitoring of vital signs [x] Documentation [x] Medication orders and management History Interval history: Still very nausous. Hospitalist Physical - Physical exam Narrative exam: Physical Exam: VITAL SIGNS: Reviewed. GENERAL: The patient appears normally developed, Vital signs as documented. HEAD: No signs of head trauma. EYES: Pupils are equal. Extraocular motions intact. EARS: Hearing grossly intact. MOUTH: Oropharynx is normal. NECK: No adenopathy, no JVD. CHEST: Chest with clear breath sounds bilaterally. No wheezes, rales, or rhonchi. CARDIAC: Regular rate and rhythm. S1 and S2, without murmurs, gallops, or rubs. VASCULAR: No Edema. Peripheral pulses normal and equal in all extremities. ABDOMEN: Soft, non tender and non distended. No rebound or guarding, and no masses palpated. Bowel Sounds normal. MUSCULOSKELETAL: Good range of motion of all major joints. Extremities without clubbing, cyanosis or edema. NEUROLOGIC EXAM: Alert and oriented x 4. no focal sensory or strength deficits. PSYCHIATRIC: Mood normal. SKIN: detail exam as documented in skin assessment - Constitutional Vitals: Temp Pulse Resp BP Pulse Ox 99.1 F 118 H 19 121/69 100 03/25/22 03:30 05/31/21 07:51 05/31/21 07:51 05/31/21 08:00 05/31/21 08:00 General appearance: Present: no acute distress, well-nourished Results - Labs CBC & Chem 7: 05/31/21 02:54 05/31/21 06:44 Labs: Laboratory Last Values WBC 23.1 K/mm3 (4.5-11.0) H 05/31/21 02:54 RBC 5.55 M/mm3 (3.65-5.03) H 05/31/21 02:54 Hgb 14.4 gm/dl (10.1-14.3) H 05/31/21 02:54 Hct 47.0 % (30.3-42.9) H D 05/31/21 02:54 MCV 85 fl (79-97) 05/31/21 02:54 MCH 26 pg (28-32) L 05/31/21 02:54 MCHC 31 % (30-34) 05/31/21 02:54 RDW 14.0 % (13.2-15.2) 05/31/21 02:54 Plt Count 348 K/mm3 (140-440) 05/31/21 02:54 Add Manual Diff Complete 05/31/21 02:54 Total Counted 100 05/31/21 02:54 Seg Neutrophils % [employer] 05/30/21 21:02 Seg Neuts % (Manual) 90.0 % (40.0-70.0) H 05/31/21 02:54 Band Neutrophils % 0 % 05/31/21 02:54 Lymphocytes % (Manual) 9.0 % (13.4-35.0) L 05/31/21 02:54 Reactive Lymphs % (Man) 0 % 05/31/21 02:54 Monocytes % (Manual) 1.0 % (0.0-7.3) 05/31/21 02:54 Eosinophils % (Manual) 0 % (0.0-4.3) 05/31/21 02:54 Basophils % (Manual) 0 % (0.0-1.8) 05/31/21 02:54 Metamyelocytes % 0 % 05/31/21 02:54 Myelocytes % 0 % 05/31/21 02:54 Promyelocytes % 0 % 05/31/21 02:54 Blast Cells % 0 % 05/31/21 02:54 Nucleated RBC % Not Reportable 05/31/21 02:54 Seg Neutrophils # Man 20.8 K/mm3 (1.8-7.7) H 05/31/21 02:54 Band Neutrophils # 0.0 K/mm3 05/31/21 02:54 Lymphocytes # (Manual) 2.1 K/mm3 (1.2-5.4) 05/31/21 02:54 Abs React Lymphs (Man) 0.0 K/mm3 05/31/21 02:54 Monocytes # (Manual) 0.2 K/mm3 (0.0-0.8) 05/31/21 02:54 Eosinophils # (Manual) 0.0 K/mm3 (0.0-0.4) 05/31/21 02:54 Basophils # (Manual) 0.0 K/mm3 (0.0-0.1) 05/31/21 02:54 Metamyelocytes # 0.0 K/mm3 05/31/21 02:54 Myelocytes # 0.0 K/mm3 05/31/21 02:54 Promyelocytes # 0.0 K/mm3 05/31/21 02:54 Blast Cells # 0.0 K/mm3 05/31/21 02:54 WBC Morphology Not Reportable 05/31/21 02:54 Hypersegmented Neuts Not Reportable 05/31/21 02:54 Hyposegmented Neuts Not Reportable 05/31/21 02:54 Hypogranular Neuts Not Reportable 05/31/21 02:54 Smudge Cells Not Reportable 05/31/21 02:54 Toxic Granulation Not Reportable 05/31/21 02:54 Toxic Vacuolation Not Reportable 05/31/21 02:54 Dohle Bodies Not Reportable 05/31/21 02:54 Pelger-Huet Anomaly Not Reportable 05/31/21 02:54 Emily Rods Not Reportable 05/31/21 02:54 Platelet Estimate Consistent w auto 05/31/21 02:54 Clumped Platelets Not Reportable 05/31/21 02:54 Plt Clumps, EDTA Not Reportable 05/31/21 02:54 Large Platelets Not Reportable 05/31/21 02:54 Giant Platelets Not Reportable 05/31/21 02:54 Platelet Satelliting Not Reportable 05/31/21 02:54 Plt Morphology Comment Not Reportable 05/31/21 02:54 RBC Morphology Normal 05/31/21 02:54 Dimorphic RBCs Not Reportable 05/31/21 02:54 Polychromasia Not Reportable 05/31/21 02:54 Hypochromasia Not Reportable 05/31/21 02:54 Poikilocytosis Not Reportable 05/31/21 02:54 Anisocytosis Not Reportable 05/31/21 02:54 Microcytosis Not Reportable 05/31/21 02:54 Macrocytosis Not Reportable 05/31/21 02:54 Spherocytes Not Reportable 05/31/21 02:54 Pappenheimer Bodies Not Reportable 05/31/21 02:54 Sickle Cells Not Reportable 05/31/21 02:54 Target Cells Not Reportable 05/31/21 02:54 Tear Drop Cells Not Reportable 05/31/21 02:54 Ovalocytes Not Reportable 05/31/21 02:54 Helmet Cells Not Reportable 05/31/21 02:54 [place] Bodies Not Reportable 05/31/21 02:54 [place] Rings Not Reportable 05/31/21 02:54 Jessica Cells Not Reportable 05/31/21 02:54 Bite Cells Not Reportable 05/31/21 02:54 Crenated Cell Not Reportable 05/31/21 02:54 Elliptocytes Not Reportable 05/31/21 02:54 Acanthocytes (Spur) Not Reportable 05/31/21 02:54 Rouleaux Not Reportable 05/31/21 02:54 Hemoglobin C Crystals Not Reportable 05/31/21 02:54 Schistocytes Not Reportable 05/31/21 02:54 Malaria parasites Not Reportable 05/31/21 02:54 Regan Bodies Not Reportable 05/31/21 02:54 Hem Pathologist Commnt No 05/31/21 02:54 VBG pH 7.176 (7.320-7.420) L* 05/30/21 21:02 Sodium 136 mmol/L (137-145) L 05/31/21 06:44 Potassium 4.4 mmol/L (3.6-5.0) 05/31/21 06:44 Chloride 109.1 mmol/L (98-107) H 05/31/21 06:44 Carbon Dioxide 8 mmol/L (22-30) L* 05/31/21 06:44 Anion Gap 23 mmol/L 05/31/21 06:44 BUN 14 mg/dL (7-17) 05/31/21 06:44 Creatinine 0.6 mg/dL (0.6-1.2) 05/31/21 06:44 Estimated GFR > 60 ml/min 05/31/21 06:44 BUN/Creatinine Ratio 23 % 05/31/21 06:44 Glucose 241 mg/dL (65-100) H 05/31/21 06:44 Calcium 8.5 mg/dL (8.4-10.2) 05/31/21 06:44 Phosphorus 3.10 mg/dL (2.5-4.5) 05/30/21 23:19 Magnesium 2.10 mg/dL (1.7-2.3) 05/30/21 23:19 Total Bilirubin 0.60 mg/dL (0.1-1.2) 05/30/21 21:02 AST 11 units/L (5-40) 05/30/21 21:02 ALT 42 units/L (7-56) 05/30/21 21:02 Alkaline Phosphatase 118 units/L (35-129) 05/30/21 21:02 Total Protein 9.3 g/dL (6.3-8.2) H 05/30/21 21:02 Albumin 4.7 g/dL (3.9-5) 05/30/21 21:02 Albumin/Globulin Ratio 1.0 % 05/30/21 21:02 Lipase 21 units/L (13-60) 05/30/21 21:02 HCG, Qual Negative (Negative) 05/30/21 21:02 Active Medications - Current Medications Current Medications: Generic Name Dose Route Start Last Admin Trade Name Freq PRN Reason Stop Dose Admin Acetaminophen 650 mg 05/30/21 23:14 05/31/21 08:55 Acetaminophen 325 Mg Tab PO 650 mg Q4H PRN Administration Pain MILD(1-3)/Fever >100.5/MEJÍA Albuterol 2.5 mg 05/30/21 23:14 Albuterol 2.5 Mg/3 Ml Nebu IH Q3HRT PRN Shortness Of Breath Albuterol/Ipratropium 1 ampul 05/31/21 02:00 Ipratropium/Albuterol Sulfate 3 Ml Ampul.Neb IH Q6HRT REFUGIO Dextrose 0 ml 05/30/21 23:22 Dextrose 10% *Hypoglycemia IV PRN PRN Hypoglycemia Famotidine 20 mg 05/31/21 10:00 Famotidine 20 Mg/2 Ml Inj IV BID REFUGIO Heparin Sodium (Porcine) 5,000 unit 05/31/21 10:00 Heparin 5,000 Unit/1 Ml Vial SUB-Q Q12HR REFUGIO Hydromorphone HCl 0.5 mg 05/30/21 23:14 Hydromorphone 1 Mg/1 Ml Inj IV Q3H PRN Pain , Severe (7-10) Insulin Human Regular 100 100 mls @ 1 mls/hr 05/30/21 22:00 05/31/21 08:54 units/ Sodium Chloride IV 7 units/hr TITR REFUGIO 7 mls/hr Titration Protocol 1 UNITS/HR Sodium Chloride 1,000 mls @ 150 mls/hr 05/30/21 23:45 05/31/21 08:08 Nacl 0.45% 1000 Ml IV 0 mls/hr DIRECT REFUGIO Infusion Piperacillin Sod/Tazobactam Sod 4.5 gm in 100 mls @ 200 mls/hr 05/30/21 23:45 05/31/21 08:55 Zosyn/Ns 4.5gm/100ml IV 200 mls/hr Q8H REFUGIO Administration Protocol Dextrose/Sodium Chloride 1,000 mls @ 150 mls/hr 05/31/21 07:00 05/31/21 07:22 D5/0.45ns IV 150 mls/hr DIRECT REFUGIO Administration Potassium Chloride/Dextrose/Sod Cl 20 meq in 1,000 mls @ 125 mls/hr 05/31/21 08:00 D5w/0.45% Nacl/Kcl 20 Meq IV DIRECT REFUGIO Metoclopramide HCl 10 mg 05/30/21 23:23 05/31/21 03:51 Metoclopramide 10 Mg/2 Ml Inj IV 10 mg Q6H PRN Administration Nausea And Vomiting Morphine Sulfate 2 mg 05/30/21 23:14 Morphine 2 Mg/1 Ml Inj IV Q4H PRN Pain, Moderate (4-6) Sodium Chloride 10 ml 05/31/21 10:00 Sodium Chloride 0.9% 10 Ml Flush Syringe IV BID REFUGIO Sodium Chloride 10 ml 05/30/21 23:14 Sodium Chloride 0.9% 10 Ml Flush Syringe IV PRN PRN LINE FLUSH
[2021-05-31] MEDS: D5W/0.45% NACL/KCL 20 MEQ 20 MEQ/1,000 ML BAG IV SCH ×2 (09:08→17:19)
[2021-05-31] MEDS ORDERED: LACTATED RINGERS 1,000 ML IV ONE ×3 (11:13→11:15)
[2021-05-31 17:03] LABS: Blood Urea Nitrogen 13 mg/dL (7-17); Calcium 8.5 mg/dL (8.4-10.2); Hemolysis Index 50
[2021-05-31 17:15] LABS: BUN/Creatinine Ratio 22
[2021-05-31] MEDS ORDERED: POTASSIUM PHOSPHATE 40 MMOL in SODIUM CHLORIDE 0.9% 500 ML 500 ML IV ONE (19:30)
[2021-05-31 23:33] LABS: Blood Urea Nitrogen 10 mg/dL (7-17); Calcium 8.5 mg/dL (8.4-10.2); Hemolysis Index 11
[2021-05-31 23:35] LABS: BUN/Creatinine Ratio 20
[2021-06-01] MEDS: D5W/0.45% NACL/KCL 20 MEQ 20 MEQ/1,000 ML BAG IV SCH (01:00)
[2021-06-01] MEDS: METOCLOPRAMIDE 10 MG/2 ML INJ IV PRN ×2 (02:24→09:13)
[2021-06-01] MEDS ORDERED: PROCHLORPERAZINE EDISYLATE 10 MG/2 ML VIAL IV PRN (02:46)
--- NOTE | 2021-06-01 02:53 | Progress Note ---
Assessment and Plan 25 y/o female with diabetic ketoacidosis and persistent nausea and vomiting. 1. Will try compazine for nausea and vomiting 2. Suggest obtaining gastric emptying study as patient could have gastroparesis 3. Needs abdominal ultrasound to evaluate liver 4. BMP in am 5. If able to tolerate PO should be able to transition to sub Q insulin, eat and transfer to floor. 6. I replaced the phos yesterday but needs to be checked again this morning. Subjective Date of service: 06/01/21 Interval history: Despite gap closing, patient with persistent nausea. Reglan not helping. Has had insulin drip off at times overnight but back on now secondary to sugar rising. Objective - Constitutional Vitals: Vital Signs - 12hr 05/31/21 05/31/21 05/31/21 14:50 15:00 15:10 Temperature Pulse Rate 95 H 95 H 99 H Pulse Rate [ From Monitor] Respiratory 25 H 24 19 Rate Blood Pressure 140/79 143/79 143/79 O2 Sat by Pulse 100 100 100 Oximetry 05/31/21 05/31/21 05/31/21 15:20 15:30 15:40 Temperature Pulse Rate 110 H 99 H 96 H Pulse Rate [ From Monitor] Respiratory 25 H 21 22 Rate Blood Pressure 143/79 143/79 143/79 O2 Sat by Pulse 100 100 100 Oximetry 05/31/21 05/31/21 05/31/21 15:50 16:00 16:10 Temperature 99.1 F Pulse Rate 96 H 99 H 102 H Pulse Rate [ 101 H From Monitor] Respiratory 24 23 22 Rate Blood Pressure 143/79 143/79 143/79 O2 Sat by Pulse 100 100 100 Oximetry 05/31/21 05/31/21 05/31/21 16:20 16:30 16:40 Temperature Pulse Rate 107 H 104 H 105 H Pulse Rate [ From Monitor] Respiratory 25 H 16 25 H Rate Blood Pressure 143/79 143/79 143/79 O2 Sat by Pulse 100 100 99 Oximetry 05/31/21 05/31/21 05/31/21 16:50 17:00 17:10 Temperature Pulse Rate 99 H 93 H 93 H Pulse Rate [ From Monitor] Respiratory 19 22 26 H Rate Blood Pressure 143/79 143/79 144/85 O2 Sat by Pulse 99 100 100 Oximetry 03/25/22 03/25/22 03/25/22 17:20 17:30 17:40 Temperature Pulse Rate 100 H 102 H 98 H Pulse Rate [ From Monitor] Respiratory 25 H 23 25 H Rate Blood Pressure 144/85 144/85 144/85 O2 Sat by Pulse 100 100 99 Oximetry 05/31/21 05/31/21 05/31/21 17:50 18:00 18:10 Temperature Pulse Rate 100 H 101 H 96 H Pulse Rate [ From Monitor] Respiratory 16 19 22 Rate Blood Pressure 144/85 137/87 137/87 O2 Sat by Pulse 100 99 100 Oximetry 05/31/21 05/31/21 05/31/21 18:20 18:30 18:40 Temperature Pulse Rate 94 H 102 H 111 H Pulse Rate [ From Monitor] Respiratory 23 14 21 Rate Blood Pressure 137/87 137/87 137/87 O2 Sat by Pulse 100 100 100 Oximetry 05/31/21 05/31/21 05/31/21 18:50 19:00 19:10 Temperature Pulse Rate 106 H 97 H 100 H Pulse Rate [ 101 H From Monitor] Respiratory 12 15 23 Rate Blood Pressure 137/87 146/81 146/81 O2 Sat by Pulse 100 99 99 Oximetry 05/31/21 05/31/21 05/31/21 19:20 19:30 19:40 Temperature Pulse Rate 99 H 94 H 93 H Pulse Rate [ From Monitor] Respiratory 20 23 21 Rate Blood Pressure 146/81 146/81 146/81 O2 Sat by Pulse 100 100 100 Oximetry 05/31/21 05/31/21 05/31/21 19:50 20:00 20:10 Temperature 100.3 F H Pulse Rate 126 H 101 H 107 H Pulse Rate [ From Monitor] Respiratory 18 11 L 22 Rate Blood Pressure 146/81 155/89 155/89 O2 Sat by Pulse 100 100 100 Oximetry 05/31/21 05/31/21 05/31/21 20:20 20:30 20:40 Temperature Pulse Rate 95 H 95 H 102 H Pulse Rate [ From Monitor] Respiratory 25 H 26 H 26 H Rate Blood Pressure 155/89 155/89 155/89 O2 Sat by Pulse 100 99 99 Oximetry 05/31/21 05/31/21 05/31/21 20:50 21:00 21:10 Temperature Pulse Rate 105 H 108 H 104 H Pulse Rate [ 101 H From Monitor] Respiratory 26 H 26 H 23 Rate Blood Pressure 155/89 155/89 137/76 O2 Sat by Pulse 98 99 Oximetry 05/31/21 05/31/21 05/31/21 21:20 21:30 21:40 Temperature Pulse Rate 100 H 103 H 95 H Pulse Rate [ From Monitor] Respiratory 21 22 22 Rate Blood Pressure 137/76 137/76 137/76 O2 Sat by Pulse Oximetry 05/31/21 05/31/21 05/31/21 21:50 22:00 22:10 Temperature Pulse Rate 94 H 92 H 97 H Pulse Rate [ From Monitor] Respiratory 25 H 19 24 Rate Blood Pressure 137/76 137/76 137/76 O2 Sat by Pulse Oximetry 05/31/21 05/31/21 05/31/21 22:20 22:30 22:40 Temperature Pulse Rate 95 H 97 H 97 H Pulse Rate [ From Monitor] Respiratory 18 24 25 H Rate Blood Pressure 137/76 137/76 137/76 O2 Sat by Pulse Oximetry 05/31/21 05/31/21 05/31/21 22:50 23:00 23:10 Temperature Pulse Rate 95 H 98 H 96 H Pulse Rate [ 101 H From Monitor] Respiratory 15 29 H 13 Rate Blood Pressure 137/76 137/76 137/76 O2 Sat by Pulse 100 Oximetry 05/31/21 05/31/21 05/31/21 23:20 23:30 23:40 Temperature Pulse Rate 97 H 97 H 100 H Pulse Rate [ From Monitor] Respiratory 20 8 L 25 H Rate Blood Pressure 137/76 137/76 137/76 O2 Sat by Pulse Oximetry 05/31/21 05/31/21 05/31/21 23:50 23:54 23:55 Temperature Pulse Rate 101 H 102 H Pulse Rate [ 101 H From Monitor] Respiratory 25 H 25 H 25 H Rate Blood Pressure 137/76 137/76 O2 Sat by Pulse 100 Oximetry 05/31/21 06/01/21 06/01/21 23:56 00:00 00:10 Temperature 100.3 F H Pulse Rate 103 H 98 H Pulse Rate [ 101 H From Monitor] Respiratory 25 H 25 H 23 Rate Blood Pressure 137/76 137/76 O2 Sat by Pulse 100 Oximetry 06/01/21 06/01/21 06/01/21 00:20 00:30 00:40 Temperature Pulse Rate 100 H 104 H 113 H Pulse Rate [ From Monitor] Respiratory 25 H 18 19 Rate Blood Pressure 137/76 137/76 137/76 O2 Sat by Pulse Oximetry 06/01/21 06/01/21 00:50 01:00 Temperature Pulse Rate 105 H 99 H Pulse Rate [ From Monitor] Respiratory 26 H 19 Rate Blood Pressure 137/76 137/76 O2 Sat by Pulse Oximetry General appearance: Present: no acute distress - EENT Eyes: PERRL ENT: hearing intact - Neck Neck: supple - Respiratory Respiratory effort: normal Respiratory: bilateral: CTA - Breasts Breasts: deferred - Cardiovascular Rhythm: regular Heart Sounds: Present: S1 & S2 - Labs CBC & Chem 7: 05/31/21 02:54 05/31/21 22:48 Labs: Abnormal lab results 05/30/21 05/31/21 05/31/21 Range/Units 21:02 02:26 02:54 WBC (4.5-11.0) K/mm3 RBC (3.65-5.03) M/mm3 Hgb (10.1-14.3) gm/dl Hct (30.3-42.9) % MCH (28-32) pg Seg Neuts % (Manual) 94.0 H (40.0-70.0) % Lymphocytes % (Manual) 5.0 L (13.4-35.0) % Seg Neutrophils # Man 24.4 H (1.8-7.7) K/mm3 Sodium 135 L (137-145) mmol/L Chloride (98-107) mmol/L Carbon Dioxide 7 L* (22-30) mmol/L Creatinine (0.6-1.2) mg/dL Glucose 380 H (65-100) mg/dL POC Glucose 341 H (70-105) mg/dL Calcium (8.4-10.2) mg/dL Phosphorus (2.5-4.5) mg/dL 05/31/21 05/31/21 05/31/21 Range/Units 02:54 03:25 04:41 WBC 23.1 H (4.5-11.0) K/mm3 RBC 5.55 H (3.65-5.03) M/mm3 Hgb 14.4 H (10.1-14.3) gm/dl Hct 47.0 H D (30.3-42.9) % MCH 26 L (28-32) pg Seg Neuts % (Manual) 90.0 H (40.0-70.0) % Lymphocytes % (Manual) 9.0 L (13.4-35.0) % Seg Neutrophils # Man 20.8 H (1.8-7.7) K/mm3 Sodium (137-145) mmol/L Chloride (98-107) mmol/L Carbon Dioxide (22-30) mmol/L Creatinine (0.6-1.2) mg/dL Glucose (65-100) mg/dL POC Glucose 338 H 345 H (70-105) mg/dL Calcium (8.4-10.2) mg/dL Phosphorus (2.5-4.5) mg/dL 05/31/21 05/31/21 05/31/21 Range/Units 04:57 05:29 06:44 WBC (4.5-11.0) K/mm3 RBC (3.65-5.03) M/mm3 Hgb (10.1-14.3) gm/dl Hct (30.3-42.9) % MCH (28-32) pg Seg Neuts % (Manual) (40.0-70.0) % Lymphocytes % (Manual) (13.4-35.0) % Seg Neutrophils # Man (1.8-7.7) K/mm3 Sodium 136 L (137-145) mmol/L Chloride 107.3 H 109.1 H (98-107) mmol/L Carbon Dioxide 7 L* 8 L* (22-30) mmol/L Creatinine (0.6-1.2) mg/dL Glucose 326 H 241 H (65-100) mg/dL POC Glucose 251 H (70-105) mg/dL Calcium 8.0 L (8.4-10.2) mg/dL Phosphorus (2.5-4.5) mg/dL 05/31/21 05/31/21 05/31/21 Range/Units 06:46 07:31 08:53 WBC (4.5-11.0) K/mm3 RBC (3.65-5.03) M/mm3 Hgb (10.1-14.3) gm/dl Hct (30.3-42.9) % MCH (28-32) pg Seg Neuts % (Manual) (40.0-70.0) % Lymphocytes % (Manual) (13.4-35.0) % Seg Neutrophils # Man (1.8-7.7) K/mm3 Sodium (137-145) mmol/L Chloride (98-107) mmol/L Carbon Dioxide (22-30) mmol/L Creatinine (0.6-1.2) mg/dL Glucose (65-100) mg/dL POC Glucose 215 H 187 H 213 H (70-105) mg/dL Calcium (8.4-10.2) mg/dL Phosphorus (2.5-4.5) mg/dL 05/31/21 05/31/21 05/31/21 Range/Units 10:06 11:08 12:22 WBC (4.5-11.0) K/mm3 RBC (3.65-5.03) M/mm3 Hgb (10.1-14.3) gm/dl Hct (30.3-42.9) % MCH (28-32) pg Seg Neuts % (Manual) (40.0-70.0) % Lymphocytes % (Manual) (13.4-35.0) % Seg Neutrophils # Man (1.8-7.7) K/mm3 Sodium (137-145) mmol/L Chloride (98-107) mmol/L Carbon Dioxide (22-30) mmol/L Creatinine (0.6-1.2) mg/dL Glucose (65-100) mg/dL POC Glucose 224 H 172 H 121 H (70-105) mg/dL Calcium (8.4-10.2) mg/dL Phosphorus (2.5-4.5) mg/dL 05/31/21 05/31/21 05/31/21 Range/Units 13:09 14:02 15:22 WBC (4.5-11.0) K/mm3 RBC (3.65-5.03) M/mm3 Hgb (10.1-14.3) gm/dl Hct (30.3-42.9) % MCH (28-32) pg Seg Neuts % (Manual) (40.0-70.0) % Lymphocytes % (Manual) (13.4-35.0) % Seg Neutrophils # Man (1.8-7.7) K/mm3 Sodium (137-145) mmol/L Chloride (98-107) mmol/L Carbon Dioxide (22-30) mmol/L Creatinine (0.6-1.2) mg/dL Glucose (65-100) mg/dL POC Glucose 154 H 153 H 262 H (70-105) mg/dL Calcium (8.4-10.2) mg/dL Phosphorus (2.5-4.5) mg/dL 05/31/21 05/31/21 05/31/21 Range/Units 16:02 16:03 16:03 WBC (4.5-11.0) K/mm3 RBC (3.65-5.03) M/mm3 Hgb (10.1-14.3) gm/dl Hct (30.3-42.9) % MCH (28-32) pg Seg Neuts % (Manual) (40.0-70.0) % Lymphocytes % (Manual) (13.4-35.0) % Seg Neutrophils # Man (1.8-7.7) K/mm3 Sodium (137-145) mmol/L Chloride 112.1 H (98-107) mmol/L Carbon Dioxide 13 L (22-30) mmol/L Creatinine (0.6-1.2) mg/dL Glucose 148 H (65-100) mg/dL POC Glucose 153 H (70-105) mg/dL Calcium (8.4-10.2) mg/dL Phosphorus 0.70 L* D (2.5-4.5) mg/dL 05/31/21 05/31/21 05/31/21 Range/Units 16:54 18:57 19:55 WBC (4.5-11.0) K/mm3 RBC (3.65-5.03) M/mm3 Hgb (10.1-14.3) gm/dl Hct (30.3-42.9) % MCH (28-32) pg Seg Neuts % (Manual) (40.0-70.0) % Lymphocytes % (Manual) (13.4-35.0) % Seg Neutrophils # Man (1.8-7.7) K/mm3 Sodium (137-145) mmol/L Chloride (98-107) mmol/L Carbon Dioxide (22-30) mmol/L Creatinine (0.6-1.2) mg/dL Glucose (65-100) mg/dL POC Glucose 128 H 148 H 151 H (70-105) mg/dL Calcium (8.4-10.2) mg/dL Phosphorus (2.5-4.5) mg/dL 05/31/21 05/31/21 05/31/21 Range/Units 21:19 22:00 22:48 WBC (4.5-11.0) K/mm3 RBC (3.65-5.03) M/mm3 Hgb (10.1-14.3) gm/dl Hct (30.3-42.9) % MCH (28-32) pg Seg Neuts % (Manual) (40.0-70.0) % Lymphocytes % (Manual) (13.4-35.0) % Seg Neutrophils # Man (1.8-7.7) K/mm3 Sodium (137-145) mmol/L Chloride 108.8 H (98-107) mmol/L Carbon Dioxide 15 L (22-30) mmol/L Creatinine 0.5 L (0.6-1.2) mg/dL Glucose 139 H (65-100) mg/dL POC Glucose 140 H 174 H (70-105) mg/dL Calcium (8.4-10.2) mg/dL Phosphorus (2.5-4.5) mg/dL 05/31/21 Range/Units 23:09 WBC (4.5-11.0) K/mm3 RBC (3.65-5.03) M/mm3 Hgb (10.1-14.3) gm/dl Hct (30.3-42.9) % MCH (28-32) pg Seg Neuts % (Manual) (40.0-70.0) % Lymphocytes % (Manual) (13.4-35.0) % Seg Neutrophils # Man (1.8-7.7) K/mm3 Sodium (137-145) mmol/L Chloride (98-107) mmol/L Carbon Dioxide (22-30) mmol/L Creatinine (0.6-1.2) mg/dL Glucose (65-100) mg/dL POC Glucose 176 H (70-105) mg/dL Calcium (8.4-10.2) mg/dL Phosphorus (2.5-4.5) mg/dL Medications & Allergies - Medications Allergies/Adverse Reactions: Allergies ondansetron [From Zofran] Adverse Reaction (Verified 05/23/20 09:12) Rash Home Medications: Home Medications Medication Instructions Recorded Confirmed Last Taken Type glipiZIDE [Glucotrol] 5 mg PO QDAY 14 Days #14 tablet 07/15/18 Unknown Rx metFORMIN [Glucophage] 500 mg PO BID 15 Days #30 tablet 07/15/18 Unknown Rx Ondansetron [Zofran Odt] 4 mg PO Q8HR PRN #15 tab.rapdis 09/06/18 Unknown Rx glipiZIDE [Glucotrol] 5 mg PO QDAY #30 tablet 09/06/18 Unknown Rx metFORMIN [Glucophage] 500 mg PO BID #60 tablet 09/06/18 Unknown Rx Famotidine [Pepcid] 40 mg PO QHS #10 tablet 09/13/18 Unknown Rx Metoclopramide HCl [Reglan TAB] 5 mg PO TIDAC #10 tablet 09/13/18 Unknown Rx Active Medications: Generic Name Dose Route Start Last Admin Trade Name Freq PRN Reason Stop Dose Admin Acetaminophen 650 mg 05/30/21 23:14 05/31/21 08:55 Acetaminophen 325 Mg Tab PO 650 mg Q4H PRN Administration Pain MILD(1-3)/Fever >100.5/MEJÍA Albuterol 2.5 mg 05/30/21 23:14 Albuterol 2.5 Mg/3 Ml Nebu IH Q3HRT PRN Shortness Of Breath Albuterol/Ipratropium 1 ampul 05/31/21 02:00 Ipratropium/Albuterol Sulfate 3 Ml Ampul.Neb IH Q6HRT REFUGIO Dextrose 0 ml 05/30/21 23:22 Dextrose 10% *Hypoglycemia IV PRN PRN Hypoglycemia Famotidine 20 mg 05/31/21 10:00 05/31/21 22:48 Famotidine 20 Mg/2 Ml Inj IV 20 mg BID REFUGIO Administration Heparin Sodium (Porcine) 5,000 unit 05/31/21 10:00 05/31/21 22:48 Heparin 5,000 Unit/1 Ml Vial SUB-Q 5,000 unit Q12HR REFUGIO Administration Hydromorphone HCl 0.5 mg 05/30/21 23:14 Hydromorphone 1 Mg/1 Ml Inj IV Q3H PRN Pain , Severe (7-10) Insulin Human Regular 100 100 mls @ 1 mls/hr 05/30/21 22:00 06/01/21 02:18 units/ Sodium Chloride IV 14 units/hr TITR REFUGIO 14 mls/hr Titration Protocol 1 UNITS/HR Potassium Chloride/Dextrose/Sod Cl 20 meq in 1,000 mls @ 125 mls/hr 05/31/21 08:00 06/01/21 01:00 D5w/0.45% Nacl/Kcl 20 Meq IV 125 mls/hr DIRECT REFUGIO Administration Metoclopramide HCl 10 mg 05/30/21 23:23 06/01/21 02:24 Metoclopramide 10 Mg/2 Ml Inj IV 10 mg Q6H PRN Administration Nausea And Vomiting Morphine Sulfate 2 mg 05/30/21 23:14 Morphine 2 Mg/1 Ml Inj IV Q4H PRN Pain, Moderate (4-6) Prochlorperazine Edisylate 10 mg 06/01/21 02:46 Prochlorperazine Edisylate 10 Mg/2 Ml Vial IV Q4H PRN Nausea And Vomiting Sodium Chloride 10 ml 05/31/21 10:00 06/01/21 00:21 Sodium Chloride 0.9% 10 Ml Flush Syringe IV 10 ml BID REFUGIO Administration Sodium Chloride 10 ml 05/30/21 23:14 Sodium Chloride 0.9% 10 Ml Flush Syringe IV PRN PRN LINE FLUSH
[2021-06-01 05:22] LABS: Basophils # (Auto) 0.1 K/mm3 (0.0-0.1); Basophils % (Auto) 0.4 % (0.0-1.8); Hematocrit 42.2 % (30.3-42.9); Hemoglobin 13.3 gm/dl (10.1-14.3); Lymphocytes % (Auto) 12.9 % (13.4-35.0); Mean Corpuscular HGB Conc 32 % (30-34); Mean Corpuscular Volume 83 fl (79-97); Monocytes # (Auto) 0.9 K/mm3 (0.0-0.8); Monocytes % (Auto) 5.9 % (0.0-7.3); Platelet Count 283 K/mm3 (140-440); Red Blood Count 5.09 M/mm3 (3.65-5.03); Red Cell Distribution Width 13.9 % (13.2-15.2)
[2021-06-01] MEDS: INSULIN REGULAR, HUMAN 100 UNITS in SODIUM CHLORIDE 0.9% 99 ML IV SCH (05:33)
[2021-06-01 05:38] LABS: Alanine Aminotransferase 29 units/L (7-56); Albumin 3.4 g/dL (3.9-5); Blood Urea Nitrogen 9 mg/dL (7-17); Calcium 8.3 mg/dL (8.4-10.2); Hemolysis Index 14
[2021-06-01 05:54] LABS: BUN/Creatinine Ratio 18
[2021-06-01] MEDS ORDERED: DEXTROSE 50% IN WATER (25GM) 50 ML SYRINGE IV PRN (07:58)
[2021-06-01] MEDS ORDERED: POTASSIUM PHOSPHATE 45 MMOL in SODIUM CHLORIDE 0.9% 500 ML 500 ML IV ONE (08:01)
[2021-06-01] MEDS: INSULIN GLARGINE 100 UNITS/ML SUB-Q SCH (08:45)
[2021-06-01] MEDS: FAMOTIDINE 20 MG TAB PO SCH (09:12)
[2021-06-01] MEDS: INSULIN LISPRO 100 UNIT/ML SUB-Q SCH ×3 (11:40→22:28)
[2021-06-01] MEDS: SUCRALFATE 1 GM TAB PO SCH ×3 (11:43→22:27)
--- NOTE | 2021-06-01 13:19 | Progress Note ---
Assessment and Plan Assessment and plan: This is a 25-year-old female with gastritis and insulin-dependent diabetes mellitus admitted with DKA Neuro: NAD -Avoid delirium -Reorientation as needed -Maintain sleep-wake cycle -As needed analgesia Cardiac: NAD -Cardiology consulted, appreciate recommendations -Blood pressure monitoring per protocol Respiratory: NAD -Pulmonary hygiene -Supplemental oxygen as needed -Pulmonary hygiene GI: Protein calorie malnutrition, h/o gastritis -24 hours +2889 mL -PPI -CC diet -BR: Colace -Abdominal ultrasound pending -As needed promethazine and Phenergan : Hypokalemia, hypochloremic metabolic acidosis, hypophosphatemia -Strict intake and output -Renally dose medications -Avoid nephrotoxic medications -Daily weights -Replete with K-Phos -Trend BMP ID: NAD -f/u blood culture -Monitor WBC and temperature curve Endo: s/p DKA, h/o IDDM -S/p insulin drip -Hemoglobin A1c 13.2 -Avoid hypoglycemia -SSI -Accu-Cheks q. ACHS -Long-acting insulin, titrate as needed Heme: Leukocytosis -Trend CBC -Transfuse hemoglobin less than 7 -Monitor for signs of bleeding -SCDs to BLE while in bed -Lovenox subcu The high probability of a clinically significant, sudden or life threatening deterioration of the [endo] system(s) required my full and direct attention, intervention and personal management. The aggregate critical care time was [60] minutes. This time is in addition to time spent performing reported procedures but includes the following: [x] Data Review and interpretation [x] Patient assessment and monitoring of vital signs [x] Documentation [x] Medication orders and management Disposition Plan: icu Total Time Spent with Patient (Minutes): 60 History Interval history: This is a 25-year-old female with gastritis and insulin-dependent diabetes mellitus who presented to emergency department on 05/30 with complaints of upper abdominal discomfort, nausea and vomiting for the past day. Recommend emergency department showed lab work consistent with DKA with a blood glucose of 94, bicarb 5, anion gap 32 and leukocytosis. Patient was admitted to the service with consult to CCM to the ICU on DKA protocol. Hospital Course to date : 05/31: Monitor for gap closure. Last BMP shows GAP=19. Can initiate 20 units subq lantus once closed. IV insulin/D5W+K infusion for now. Unclear why she was initiated on abx. Will d/c zosyn for now. 06/01: Anion gap closed, will transition to SSI and long-acting insulin. Patient still complaining of nausea and vomiting and has as needed promethazine and Phenergan. Patient will be started on CC diet and transfered to floor. Hospitalist Physical - Constitutional Vitals: Temp Pulse Resp BP Pulse Ox 98.5 F 93 H 12 122/63 100 06/01/21 07:45 06/01/21 12:00 06/01/21 12:00 06/01/21 11:40 06/01/21 12:00 General appearance: Present: no acute distress - EENT Eyes: Present: PERRL, EOM intact ENT: hearing intact, clear oral mucosa, dentition normal - Neck Neck: Present: normal ROM - Respiratory Respiratory effort: normal Respiratory: bilateral: diminished - Cardiovascular Rhythm: regular Heart Sounds: Present: S1 & S2. Absent: systolic murmur, diastolic murmur - Extremities Extremities: no ischemia, pulses intact, pulses symmetrical, No edema, normal temperature, normal color, Full ROM Peripheral Pulses: within normal limits - Abdominal General gastrointestinal: soft, non-tender, non-distended, normal bowel sounds - Integumentary Integumentary: Present: warm, dry - Psychiatric Psychiatric: agitated, other (flat affect) - Neurologic Neurologic: CNII-XII intact, moves all extremities, gait normal - Allied Health Allied health notes reviewed: nursing, RT Results - Labs CBC & Chem 7: 06/01/21 04:56 06/01/21 04:56 Labs: Laboratory Last Values WBC 15.6 K/mm3 (4.5-11.0) H 06/01/21 04:56 RBC 5.09 M/mm3 (3.65-5.03) H 06/01/21 04:56 Hgb 13.3 gm/dl (10.1-14.3) 06/01/21 04:56 Hct 42.2 % (30.3-42.9) 06/01/21 04:56 MCV 83 fl (79-97) 06/01/21 04:56 MCH 26 pg (28-32) L 06/01/21 04:56 MCHC 32 % (30-34) 06/01/21 04:56 RDW 13.9 % (13.2-15.2) 06/01/21 04:56 Plt Count 283 K/mm3 (140-440) 06/01/21 04:56 Lymph % (Auto) 12.9 % (13.4-35.0) L 06/01/21 04:56 [place] % (Auto) 5.9 % (0.0-7.3) 06/01/21 04:56 Eos % (Auto) 0.0 % (0.0-4.3) 06/01/21 04:56 Baso % (Auto) 0.4 % (0.0-1.8) 06/01/21 04:56 Lymph # (Auto) 2.0 K/mm3 (1.2-5.4) 06/01/21 04:56 [place] # (Auto) 0.9 K/mm3 (0.0-0.8) H 06/01/21 04:56 Eos # (Auto) 0.0 K/mm3 (0.0-0.4) 06/01/21 04:56 Baso # (Auto) 0.1 K/mm3 (0.0-0.1) 06/01/21 04:56 Add Manual Diff Complete 05/31/21 02:54 Total Counted 100 05/31/21 02:54 Seg Neutrophils % 80.8 % (40.0-70.0) H 06/01/21 04:56 Seg Neuts % (Manual) 90.0 % (40.0-70.0) H 05/31/21 02:54 Band Neutrophils % 0 % 05/31/21 02:54 Lymphocytes % (Manual) 9.0 % (13.4-35.0) L 05/31/21 02:54 Reactive Lymphs % (Man) 0 % 05/31/21 02:54 Monocytes % (Manual) 1.0 % (0.0-7.3) 05/31/21 02:54 Eosinophils % (Manual) 0 % (0.0-4.3) 05/31/21 02:54 Basophils % (Manual) 0 % (0.0-1.8) 05/31/21 02:54 Metamyelocytes % 0 % 05/31/21 02:54 Myelocytes % 0 % 05/31/21 02:54 Promyelocytes % 0 % 05/31/21 02:54 Blast Cells % 0 % 05/31/21 02:54 Nucleated RBC % Not Reportable 05/31/21 02:54 Seg Neutrophils # 12.6 K/mm3 (1.8-7.7) H 06/01/21 04:56 Seg Neutrophils # Man 20.8 K/mm3 (1.8-7.7) H 05/31/21 02:54 Band Neutrophils # 0.0 K/mm3 05/31/21 02:54 Lymphocytes # (Manual) 2.1 K/mm3 (1.2-5.4) 05/31/21 02:54 Abs React Lymphs (Man) 0.0 K/mm3 05/31/21 02:54 Monocytes # (Manual) 0.2 K/mm3 (0.0-0.8) 05/31/21 02:54 Eosinophils # (Manual) 0.0 K/mm3 (0.0-0.4) 05/31/21 02:54 Basophils # (Manual) 0.0 K/mm3 (0.0-0.1) 05/31/21 02:54 Metamyelocytes # 0.0 K/mm3 05/31/21 02:54 Myelocytes # 0.0 K/mm3 05/31/21 02:54 Promyelocytes # 0.0 K/mm3 05/31/21 02:54 Blast Cells # 0.0 K/mm3 05/31/21 02:54 WBC Morphology Not Reportable 05/31/21 02:54 Hypersegmented Neuts Not Reportable 05/31/21 02:54 Hyposegmented Neuts Not Reportable 05/31/21 02:54 Hypogranular Neuts Not Reportable 05/31/21 02:54 Smudge Cells Not Reportable 05/31/21 02:54 Toxic Granulation Not Reportable 05/31/21 02:54 Toxic Vacuolation Not Reportable 05/31/21 02:54 Dohle Bodies Not Reportable 05/31/21 02:54 Pelger-Huet Anomaly Not Reportable 05/31/21 02:54 Emily Rods Not Reportable 05/31/21 02:54 Platelet Estimate Consistent w auto 05/31/21 02:54 Clumped Platelets Not Reportable 05/31/21 02:54 Plt Clumps, EDTA Not Reportable 05/31/21 02:54 Large Platelets Not Reportable 05/31/21 02:54 Giant Platelets Not Reportable 05/31/21 02:54 Platelet Satelliting Not Reportable 05/31/21 02:54 Plt Morphology Comment Not Reportable 05/31/21 02:54 RBC Morphology Normal 05/31/21 02:54 Dimorphic RBCs Not Reportable 05/31/21 02:54 Polychromasia Not Reportable 05/31/21 02:54 Hypochromasia Not Reportable 05/31/21 02:54 Poikilocytosis Not Reportable 05/31/21 02:54 Anisocytosis Not Reportable 05/31/21 02:54 Microcytosis Not Reportable 05/31/21 02:54 Macrocytosis Not Reportable 05/31/21 02:54 Spherocytes Not Reportable 05/31/21 02:54 Pappenheimer Bodies Not Reportable 05/31/21 02:54 Sickle Cells Not Reportable 05/31/21 02:54 Target Cells Not Reportable 05/31/21 02:54 Tear Drop Cells Not Reportable 05/31/21 02:54 Ovalocytes Not Reportable 05/31/21 02:54 Helmet Cells Not Reportable 05/31/21 02:54 [place] Bodies Not Reportable 05/31/21 02:54 [place] Rings Not Reportable 05/31/21 02:54 [place] Cells Not Reportable 05/31/21 02:54 Bite Cells Not Reportable 05/31/21 02:54 Crenated Cell Not Reportable 05/31/21 02:54 Elliptocytes Not Reportable 05/31/21 02:54 Acanthocytes (Spur) Not Reportable 05/31/21 02:54 Rouleaux Not Reportable 05/31/21 02:54 Hemoglobin C Crystals Not Reportable 05/31/21 02:54 Schistocytes Not Reportable 05/31/21 02:54 Malaria parasites Not Reportable 05/31/21 02:54 Regan Bodies Not Reportable 05/31/21 02:54 Hem Pathologist Commnt No 05/31/21 02:54 VBG pH 7.176 (7.320-7.420) L* 05/30/21 21:02 Sodium 141 mmol/L (137-145) 06/01/21 04:56 Potassium 3.5 mmol/L (3.6-5.0) L 06/01/21 04:56 Chloride 110.6 mmol/L (98-107) H 06/01/21 04:56 Carbon Dioxide 17 mmol/L (22-30) L 06/01/21 04:56 Anion Gap 17 mmol/L 06/01/21 04:56 BUN 9 mg/dL (7-17) 06/01/21 04:56 Creatinine 0.5 mg/dL (0.6-1.2) L 06/01/21 04:56 Estimated GFR > 60 ml/min 06/01/21 04:56 BUN/Creatinine Ratio 18 % 06/01/21 04:56 Glucose 147 mg/dL (65-100) H 06/01/21 04:56 POC Glucose 136 mg/dL (70-105) H 06/01/21 07:10 Hemoglobin A1c 13.2 % (4-6) H 06/01/21 08:26 Calcium 8.3 mg/dL (8.4-10.2) L 06/01/21 04:56 Phosphorus 1.40 mg/dL (2.5-4.5) L D 06/01/21 04:56 Magnesium 2.00 mg/dL (1.7-2.3) 06/01/21 04:56 Total Bilirubin 0.70 mg/dL (0.1-1.2) 06/01/21 04:56 AST 23 units/L (5-40) 06/01/21 04:56 ALT 29 units/L (7-56) 06/01/21 04:56 Alkaline Phosphatase 78 units/L (35-129) 06/01/21 04:56 Total Protein 6.7 g/dL (6.3-8.2) D 06/01/21 04:56 Albumin 3.4 g/dL (3.9-5) L 06/01/21 04:56 Albumin/Globulin Ratio 1.0 % 06/01/21 04:56 Lipase 21 units/L (13-60) 05/30/21 21:02 HCG, Qual Negative (Negative) 05/30/21 21:02 [place]/IV: Voiding Method Toilet Active Medications - Current Medications Current Medications: Generic Name Dose Route Start Last Admin Trade Name Freq PRN Reason Stop Dose Admin Acetaminophen 650 mg 05/30/21 23:14 05/31/21 08:55 Acetaminophen 325 Mg Tab PO 650 mg Q4H PRN Administration Pain MILD(1-3)/Fever >100.5/MEJÍA Albuterol 2.5 mg 05/30/21 23:14 Albuterol 2.5 Mg/3 Ml Nebu IH Q3HRT PRN Shortness Of Breath Albuterol/Ipratropium 1 ampul 05/31/21 02:00 Ipratropium/Albuterol Sulfate 3 Ml Ampul.Neb IH Q6HRT REFUGIO Dextrose 0 ml 05/30/21 23:22 Dextrose 10% *Hypoglycemia IV PRN PRN Hypoglycemia Dextrose 50 ml 06/01/21 07:58 Dextrose 50% In Water (25gm) 50 Ml Syringe IV Q30MIN PRN Hypoglycemia Protocol Enoxaparin Sodium 40 mg 06/01/21 22:00 Enoxaparin 40 Mg/0.4 Ml Inj SUB-Q QDAY@2200 [facility] Protocol Famotidine 40 mg 06/01/21 10:00 06/01/21 09:12 Famotidine 20 Mg Tab PO 40 mg QDAY REFUGIO Administration Hydromorphone HCl 0.5 mg 05/30/21 23:14 Hydromorphone 1 Mg/1 Ml Inj IV Q3H PRN Pain , Severe (7-10) Potassium Phosphate 45 mmol/ 515 mls @ 85 mls/hr 06/01/21 08:01 06/01/21 08 :45 Sodium Chloride IV 06/01/21 14:04 85 mls/hr ONCE ONE Administration Insulin Glargine 20 units 06/01/21 08:00 06/01/21 08:45 Insulin Glargine 100 Units/Ml SUB-Q 20 units QAMDIAB [facility] Administration Insulin Human Lispro 0 unit 06/01/21 11:30 06/01/21 11:40 Insulin Lispro 100 Unit/Ml SUB-Q 2 unit ACHS REFUGIO Administration Protocol Metoclopramide HCl 10 mg 05/30/21 23:23 06/01/21 09:13 Metoclopramide 10 Mg/2 Ml Inj IV 10 mg Q6H PRN Administration Nausea And Vomiting Morphine Sulfate 2 mg 05/30/21 23:14 Morphine 2 Mg/1 Ml Inj IV Q4H PRN Pain, Moderate (4-6) Prochlorperazine Edisylate 10 mg 06/01/21 02:46 06/01/21 04:51 Prochlorperazine Edisylate 10 Mg/2 Ml Vial IV 10 mg Q4H PRN Administration Nausea And Vomiting Sodium Chloride 10 ml 05/31/21 10:00 06/01/21 00:21 Sodium Chloride 0.9% 10 Ml Flush Syringe IV 10 ml BID REFUGIO Administration Sodium Chloride 10 ml 05/30/21 23:14 Sodium Chloride 0.9% 10 Ml Flush Syringe IV PRN PRN LINE FLUSH Sucralfate 1 gm 06/01/21 11:30 06/01/21 11:43 Sucralfate 1 Gm Tab PO 1 gm ACHS REFUGIO Administration
[2021-06-01] MEDS: IPRATROPIUM/ALBUTEROL SULFATE 3 ML AMPUL.NEB IH SCH ×3 (13:30→13:32)
[2021-06-01] MEDS: ENOXAPARIN 40 MG/0.4 ML INJ SUB-Q SCH (22:27)
[2021-06-01] MEDS: ACETAMINOPHEN 325 MG TAB PO PRN (22:34)
[2021-06-02] MEDS: METOCLOPRAMIDE 10 MG/2 ML INJ IV PRN (04:14)
[2021-06-02 06:05] LABS: Hematocrit 41.7 % (30.3-42.9); Hemoglobin 13.5 gm/dl (10.1-14.3); Mean Corpuscular HGB Conc 32 % (30-34); Mean Corpuscular Volume 82 fl (79-97); Platelet Count 276 K/mm3 (140-440); Red Blood Count 5.07 M/mm3 (3.65-5.03); Red Cell Distribution Width 13.5 % (13.2-15.2)
[2021-06-02 06:27] LABS: Alanine Aminotransferase 45 units/L (7-56); Blood Urea Nitrogen 8 mg/dL (7-17); Calcium 8.9 mg/dL (8.4-10.2); Hemolysis Index 1
[2021-06-02 06:30] LABS: BUN/Creatinine Ratio 20
[2021-06-02] MEDS: INSULIN LISPRO 100 UNIT/ML SUB-Q SCH ×4 (07:30→22:21)
[2021-06-02] MEDS: INSULIN GLARGINE 100 UNITS/ML SUB-Q SCH (08:00)
[2021-06-02] MEDS: FAMOTIDINE 20 MG TAB PO SCH (10:22)
[2021-06-02] MEDS: SUCRALFATE 1 GM TAB PO SCH ×4 (10:26→22:09)
--- NOTE | 2021-06-02 10:40 | Progress Note ---
Assessment and Plan Assessment and plan: This is a 25-year-old female with gastritis and insulin-dependent diabetes mellitus admitted with DKA #DKAresolved #Insulin-dependent type 2 diabetes mellitus #Anion gap metabolic acidosis #Hypokalemia #Hypophosphatemia Hemoglobin A1c 13.2 Status post insulin drip and aggressive IV fluid resuscitation. Transitioned to subcutaneous insulin: Lantus 25 units twice daily and moderate SSI Patient will need an additional night to ensure tighter glycemic control Counseled patient at length about the importance of medication compliance and the importance of clinical pharmacy for additional assistance. Patient expresses understanding Continue to monitor #Leukocytosisimproving WBC 11.5 Continuing Zosyn 4.5 g every 6 hours but will transition to Bactrim double strength twice daily (will complete on 06/03/2021) for a total 5-day course of antibiotics if right upper quadrant ultrasound is unremarkable No urinalysis, urine culture, or blood culture performed during admission #Mild protein caloric malnutrition Albumin 3.4 Nutrition consulted; appreciate recs #Advanced care planning -Disease education conducted, care plan discussed, diagnoses discussed, prognosis discussed, and patient acknowledges understanding with care plan -Time: +30 min Disposition Plan: Pending discharge home tomorrow Total Time Spent with Patient (Minutes): 30 minutes History Interval history: No acute events overnight. Hospitalist Physical - Constitutional Vitals: Temp Pulse Resp BP Pulse Ox 99.8 F H 89 18 146/86 100 06/02/21 04:23 06/02/21 04:23 06/02/21 04:23 06/02/21 04:23 06/02/21 04:23 General appearance: Present: no acute distress, well-nourished, obese - EENT Eyes: Present: PERRL, EOM intact ENT: hearing intact, clear oral mucosa, dentition normal - Neck Neck: Present: supple, normal ROM - Respiratory Respiratory effort: normal Respiratory: bilateral: CTA - Cardiovascular Rhythm: regular Heart Sounds: Present: S1 & S2 - Extremities Extremities: no ischemia, pulses intact, pulses symmetrical, No edema, normal temperature, normal color, Full ROM Peripheral Pulses: within normal limits - Abdominal General gastrointestinal: soft, non-tender, non-distended, normal bowel sounds - Integumentary Integumentary: Present: clear, warm, dry - Psychiatric Psychiatric: appropriate mood/affect, intact judgment & insight, memory intact, cooperative - Neurologic Neurologic: CNII-XII intact, moves all extremities - Allied Health Allied health notes reviewed: nursing Results - Labs CBC & Chem 7: 06/02/21 05:05 06/02/21 05:05 Labs: Laboratory Last Values WBC 11.5 K/mm3 (4.5-11.0) H 06/02/21 05:05 RBC 5.07 M/mm3 (3.65-5.03) H 06/02/21 05:05 Hgb 13.5 gm/dl (10.1-14.3) 06/02/21 05:05 Hct 41.7 % (30.3-42.9) 06/02/21 05:05 MCV 82 fl (79-97) 06/02/21 05:05 MCH 27 pg (28-32) L 06/02/21 05:05 MCHC 32 % (30-34) 06/02/21 05:05 RDW 13.5 % (13.2-15.2) 06/02/21 05:05 Plt Count 276 K/mm3 (140-440) 06/02/21 05:05 Lymph % (Auto) 12.9 % (13.4-35.0) L 06/01/21 04:56 [place] % (Auto) 5.9 % (0.0-7.3) 06/01/21 04:56 Eos % (Auto) 0.0 % (0.0-4.3) 06/01/21 04:56 Baso % (Auto) 0.4 % (0.0-1.8) 06/01/21 04:56 Lymph # (Auto) 2.0 K/mm3 (1.2-5.4) 06/01/21 04:56 [place] # (Auto) 0.9 K/mm3 (0.0-0.8) H 06/01/21 04:56 Eos # (Auto) 0.0 K/mm3 (0.0-0.4) 06/01/21 04:56 Baso # (Auto) 0.1 K/mm3 (0.0-0.1) 06/01/21 04:56 Add Manual Diff Complete 05/31/21 02:54 Total Counted 100 05/31/21 02:54 Seg Neutrophils % 80.8 % (40.0-70.0) H 06/01/21 04:56 Seg Neuts % (Manual) 90.0 % (40.0-70.0) H 05/31/21 02:54 Band Neutrophils % 0 % 05/31/21 02:54 Lymphocytes % (Manual) 9.0 % (13.4-35.0) L 05/31/21 02:54 Reactive Lymphs % (Man) 0 % 05/31/21 02:54 Monocytes % (Manual) 1.0 % (0.0-7.3) 05/31/21 02:54 Eosinophils % (Manual) 0 % (0.0-4.3) 05/31/21 02:54 Basophils % (Manual) 0 % (0.0-1.8) 05/31/21 02:54 Metamyelocytes % 0 % 05/31/21 02:54 Myelocytes % 0 % 05/31/21 02:54 Promyelocytes % 0 % 05/31/21 02:54 Blast Cells % 0 % 05/31/21 02:54 Nucleated RBC % Not Reportable 05/31/21 02:54 Seg Neutrophils # 12.6 K/mm3 (1.8-7.7) H 06/01/21 04:56 Seg Neutrophils # Man 20.8 K/mm3 (1.8-7.7) H 05/31/21 02:54 Band Neutrophils # 0.0 K/mm3 05/31/21 02:54 Lymphocytes # (Manual) 2.1 K/mm3 (1.2-5.4) 05/31/21 02:54 Abs React Lymphs (Man) 0.0 K/mm3 05/31/21 02:54 Monocytes # (Manual) 0.2 K/mm3 (0.0-0.8) 05/31/21 02:54 Eosinophils # (Manual) 0.0 K/mm3 (0.0-0.4) 05/31/21 02:54 Basophils # (Manual) 0.0 K/mm3 (0.0-0.1) 05/31/21 02:54 Metamyelocytes # 0.0 K/mm3 05/31/21 02:54 Myelocytes # 0.0 K/mm3 05/31/21 02:54 Promyelocytes # 0.0 K/mm3 05/31/21 02:54 Blast Cells # 0.0 K/mm3 05/31/21 02:54 WBC Morphology Not Reportable 05/31/21 02:54 Hypersegmented Neuts Not Reportable 05/31/21 02:54 Hyposegmented Neuts Not Reportable 05/31/21 02:54 Hypogranular Neuts Not Reportable 05/31/21 02:54 Smudge Cells Not Reportable 05/31/21 02:54 Toxic Granulation Not Reportable 05/31/21 02:54 Toxic Vacuolation Not Reportable 05/31/21 02:54 Dohle Bodies Not Reportable 05/31/21 02:54 Pelger-Huet Anomaly Not Reportable 05/31/21 02:54 Emily Rods Not Reportable 05/31/21 02:54 Platelet Estimate Consistent w auto 05/31/21 02:54 Clumped Platelets Not Reportable 05/31/21 02:54 Plt Clumps, EDTA Not Reportable 05/31/21 02:54 Large Platelets Not Reportable 05/31/21 02:54 Giant Platelets Not Reportable 05/31/21 02:54 Platelet Satelliting Not Reportable 05/31/21 02:54 Plt Morphology Comment Not Reportable 05/31/21 02:54 RBC Morphology Normal 05/31/21 02:54 Dimorphic RBCs Not Reportable 05/31/21 02:54 Polychromasia Not Reportable 05/31/21 02:54 Hypochromasia Not Reportable 05/31/21 02:54 Poikilocytosis Not Reportable 05/31/21 02:54 Anisocytosis Not Reportable 05/31/21 02:54 Microcytosis Not Reportable 05/31/21 02:54 Macrocytosis Not Reportable 05/31/21 02:54 Spherocytes Not Reportable 05/31/21 02:54 Pappenheimer Bodies Not Reportable 05/31/21 02:54 Sickle Cells Not Reportable 05/31/21 02:54 Target Cells Not Reportable 05/31/21 02:54 Tear Drop Cells Not Reportable 05/31/21 02:54 Ovalocytes Not Reportable 05/31/21 02:54 Helmet Cells Not Reportable 05/31/21 02:54 [place] Bodies Not Reportable 05/31/21 02:54 [place] Rings Not Reportable 05/31/21 02:54 [place] Cells Not Reportable 05/31/21 02:54 Bite Cells Not Reportable 05/31/21 02:54 Crenated Cell Not Reportable 05/31/21 02:54 Elliptocytes Not Reportable 05/31/21 02:54 Acanthocytes (Spur) Not Reportable 05/31/21 02:54 Rouleaux Not Reportable 05/31/21 02:54 Hemoglobin C Crystals Not Reportable 05/31/21 02:54 Schistocytes Not Reportable 05/31/21 02:54 Malaria parasites Not Reportable 05/31/21 02:54 Regan Bodies Not Reportable 05/31/21 02:54 Hem Pathologist Commnt No 05/31/21 02:54 PT 14.3 Sec. (12.2-14.9) 06/02/21 05:05 INR 1.00 (0.87-1.13) 06/02/21 05:05 VBG pH 7.176 (7.320-7.420) L* 05/30/21 21:02 Sodium 139 mmol/L (137-145) 06/02/21 05:05 Potassium 3.6 mmol/L (3.6-5.0) 06/02/21 05:05 Chloride 102.2 mmol/L (98-107) 06/02/21 05:05 Carbon Dioxide 18 mmol/L (22-30) L 06/02/21 05:05 Anion Gap 22 mmol/L 06/02/21 05:05 BUN 8 mg/dL (7-17) 06/02/21 05:05 Creatinine 0.4 mg/dL (0.6-1.2) L 06/02/21 05:05 Estimated GFR > 60 ml/min 06/02/21 05:05 BUN/Creatinine Ratio 20 % 06/02/21 05:05 Glucose 263 mg/dL (65-100) H 06/02/21 05:05 POC Glucose 220 mg/dL (70-105) H 06/01/21 21:03 Hemoglobin A1c 13.2 % (4-6) H 06/01/21 08:26 Calcium 8.9 mg/dL (8.4-10.2) 06/02/21 05:05 Phosphorus 2.30 mg/dL (2.5-4.5) L D 06/02/21 05:05 Magnesium 2.20 mg/dL (1.7-2.3) 06/02/21 05:05 Total Bilirubin 1.00 mg/dL (0.1-1.2) 06/02/21 05:05 AST 25 units/L (5-40) 06/02/21 05:05 ALT 45 units/L (7-56) 06/02/21 05:05 Alkaline Phosphatase 92 units/L (35-129) 06/02/21 05:05 Total Protein 6.8 g/dL (6.3-8.2) 06/02/21 05:05 Albumin 4.0 g/dL (3.9-5) 06/02/21 05:05 Albumin/Globulin Ratio 1.4 % 06/02/21 05:05 Lipase 21 units/L (13-60) 05/30/21 21:02 HCG, Qual Negative (Negative) 05/30/21 21:02 [place]/IV: Voiding Method Toilet Active Medications - Current Medications Current Medications: Generic Name Dose Route Start Last Admin Trade Name Freq PRN Reason Stop Dose Admin Acetaminophen 650 mg 05/30/21 23:14 06/01/21 22:34 Acetaminophen 325 Mg Tab PO 650 mg Q4H PRN Administration Pain MILD(1-3)/Fever >100.5/MEJÍA Albuterol 2.5 mg 05/30/21 23:14 Albuterol 2.5 Mg/3 Ml Nebu IH Q3HRT PRN Shortness Of Breath Dextrose 0 ml 05/30/21 23:22 Dextrose 10% *Hypoglycemia IV PRN PRN Hypoglycemia Dextrose 50 ml 06/01/21 07:58 Dextrose 50% In Water (25gm) 50 Ml Syringe IV Q30MIN PRN Hypoglycemia Protocol Enoxaparin Sodium 40 mg 06/01/21 22:00 06/01/21 22:27 Enoxaparin 40 Mg/0.4 Ml Inj SUB-Q 40 mg QDAY@2200 REFUGIO Administration Protocol Famotidine 40 mg 06/01/21 10:00 06/02/21 10:22 Famotidine 20 Mg Tab PO 40 mg QDAY REFUGIO Administration Hydromorphone HCl 0.5 mg 05/30/21 23:14 Hydromorphone 1 Mg/1 Ml Inj IV Q3H PRN Pain , Severe (7-10) Insulin Glargine 20 units 06/01/21 08:00 06/02/21 08:00 Insulin Glargine 100 Units/Ml SUB-Q 20 units QAMDIAB REFUGIO Administration Insulin Human Lispro 0 unit 06/01/21 11:30 06/02/21 07:30 Insulin Lispro 100 Unit/Ml SUB-Q 3 unit ACHS REFUGIO Administration Protocol Metoclopramide HCl 10 mg 05/30/21 23:23 06/02/21 04:14 Metoclopramide 10 Mg/2 Ml Inj IV 10 mg Q6H PRN Administration Nausea And Vomiting Morphine Sulfate 2 mg 05/30/21 23:14 Morphine 2 Mg/1 Ml Inj IV Q4H PRN Pain, Moderate (4-6) Prochlorperazine Edisylate 10 mg 06/01/21 02:46 06/01/21 04:51 Prochlorperazine Edisylate 10 Mg/2 Ml Vial IV 10 mg Q4H PRN Administration Nausea And Vomiting Sodium Chloride 10 ml 05/31/21 10:00 06/02/21 10:27 Sodium Chloride 0.9% 10 Ml Flush Syringe IV 10 ml BID REFUGIO Administration Sodium Chloride 10 ml 05/30/21 23:14 Sodium Chloride 0.9% 10 Ml Flush Syringe IV PRN PRN LINE FLUSH Sucralfate 1 gm 06/01/21 11:30 06/02/21 10:26 Sucralfate 1 Gm Tab PO 1 gm ACHS REFUGIO Administration Nutrition/Malnutrition Assess - Dietary Evaluation Nutrition/Malnutrition Findings: Nutrition Notes Start: 06/01/21 15:47 Freq: Status: Active Protocol: Document 06/01/21 15:47 RAUL (Rec: 06/01/21 15:53 RAUL [id number]) Nutrition Notes Need for Assessment generated from: MD Order,Education Initial or Follow up Brief Note Current Diagnosis Diabetes Other Pertinent Diagnosis Gastritis, DKA, Leukocytosis, N/V. Current Diet Consistent Carbohydrates Diet (since L 06/01). Height 4 ft 11 in Weight 80.4 kg [place] Body Weight (kg) 43.18 BMI 35.8 Intake Prior to Admission Good Weight change and time frame Pt denies having loss body weight [employer]. Weight Status Obese Subjective/Other Information RD consult for Nutrition Education. No reports available on Pt's PO intake of meals at the time , will assess at F/U. Pt still in critical condition , not a candidate for Nutrition Education at the time, will assess feasibility on F/U. Percent of energy/protein needs met: Prescribed Consistent Carbohydrates Diet provides for energy/protein needs (2, 061 Kcal/91 g) during LOS. Nutrition Intervention Follow-Up By: 06/06/21 Additional Comments Nutrition education will be provided on F/U, if feasible. Continue monitoring food tolerance, %PO intake of meals , and BM.
[2021-06-02] MEDS: METOCLOPRAMIDE 10 MG/2 ML INJ IV SCH ×2 (14:00→20:09)
[2021-06-02] MEDS ORDERED: LOSARTAN 50 MG TAB PO SCH (18:00)
[2021-06-02] MEDS ORDERED: NIFEdipine XL 30 MG TAB PO SCH (18:00)
[2021-06-02] MEDS: ENOXAPARIN 40 MG/0.4 ML INJ SUB-Q SCH (22:09)
[2021-06-03] MEDS: ACETAMINOPHEN 325 MG TAB PO PRN (00:38)
[2021-06-03] MEDS: METOCLOPRAMIDE 10 MG/2 ML INJ IV SCH (02:29)
[2021-06-03 06:13] VITALS: BP 126/74
[2021-06-03] MEDS ORDERED: INSULIN GLARGINE 100 UNITS/ML SUB-Q SCH (08:00)
[2021-06-03 09:11] LABS: Basophils # (Auto) 0.1 K/mm3 (0.0-0.1); Basophils % (Auto) 0.5 % (0.0-1.8); Eosinophils # (Auto) 0.1 K/mm3 (0.0-0.4); Eosinophils % (Auto) 0.9 % (0.0-4.3); Hematocrit 43.2 % (30.3-42.9); Hemoglobin 13.8 gm/dl (10.1-14.3); Lymphocytes # (Auto) 3.7 K/mm3 (1.2-5.4); Lymphocytes % (Auto) 33.1 % (13.4-35.0); Mean Corpuscular HGB Conc 32 % (30-34); Mean Corpuscular Volume 82 fl (79-97); Monocytes # (Auto) 0.8 K/mm3 (0.0-0.8); Monocytes % (Auto) 7.2 % (0.0-7.3); Platelet Count 297 K/mm3 (140-440); Red Blood Count 5.25 M/mm3 (3.65-5.03); Red Cell Distribution Width 13.7 % (13.2-15.2)
[2021-06-03 09:33] LABS: Blood Urea Nitrogen 8 mg/dL (7-17); Calcium 9.3 mg/dL (8.4-10.2); Hemolysis Index 4
[2021-06-03 09:40] LABS: BUN/Creatinine Ratio 20
[2021-06-03] MEDS ORDERED: PROCHLORPERAZINE MALEATE 10 MG TAB PO PRN (11:00)
--- NOTE | 2021-06-03 11:24 | Discharge Summary ---
Providers - Providers Date of Admission: 05/30/21 23:14 Date of discharge: 06/03/21 Attending physician: DIONNE JOY MD 06/01/21 08:06 Consult to Dietitian/Nutrition [CONS] Routine Physician Instructions: Reason For Exam: Reason for Consult: Diet education Primary care physician: DRY MAN Hospitalization Reason for admission: Diabetic ketoacidosis, anion gap metabolic acidosis Condition: Critical Pertinent studies: Reviewed. Procedures: None. Hospital course: Patient is a 25-year-old female with past medical history of gastritis, insulin- dependent type 2 diabetes mellitus, and morbid obesity who presented with DKA requiring ICU admission. On admission the patient was found to have a blood glucose of 494, bicarbonate 5, and anion gap of 32. The patient underwent aggressive IV fluid resuscitation and initiation of insulin drip with eventual resolution of DKA. Patient was successfully transferred to the floor for further management. The patient was counseled at length about the importance of medication compliance, following with a primary care provider, dietary changes, weight loss, and incorporating exercise. The patient expresses understanding. The patient is medically cleared for discharge. Disposition: 01 HOME / SELF CARE / HOMELESS Final Discharge Diagnosis (Prints w/discharge instructions): Diabetic ketoacidosis, insulin-dependent type 2 diabetes mellitus, anion gap metabolic acidosis, hypokalemia, hypophosphatemia, leukocytosis, mild protein caloric malnutrition, morbid obesity. Time spent for discharge: 45 min Core Measure Documentation - Palliative Care Palliative Care/ Comfort Measures: Not Applicable - Core Measures Any of the following diagnoses?: none Exam - Constitutional Vitals: Temp Pulse Resp BP Pulse Ox 98.6 F 106 H 18 126/74 100 06/03/21 04:43 06/03/21 04:43 06/03/21 04:43 06/03/21 04:43 06/03/21 04:43 General appearance: Present: no acute distress, obese - EENT Eyes: Present: PERRL, EOM intact ENT: hearing intact, clear oral mucosa, dentition normal - Neck Neck: Present: supple, normal ROM - Respiratory Respiratory effort: normal Respiratory: bilateral: CTA - Cardiovascular Rhythm: regular Heart Sounds: Present: S1 & S2 - Extremities Extremities: no ischemia, pulses intact, pulses symmetrical, No edema, normal temperature, normal color, Full ROM Peripheral Pulses: within normal limits - Abdominal General gastrointestinal: Present: soft, non-tender, non-distended, normal bowel sounds Female genitourinary: Present: deferred - Rectal Rectal Exam: deferred - Integumentary Integumentary: Present: clear, warm, dry - Musculoskeletal Musculoskeletal: strength equal bilaterally - Psychiatric Psychiatric: appropriate mood/affect, memory intact - Neurologic Neurologic: CNII-XII intact, moves all extremities - Allied Health Allied health notes reviewed: nursing Plan Activity: advance as tolerated Diet: diabetic Additional Instructions: Patient is a 25-year-old female with past medical history of gastritis, insulin-dependent type 2 diabetes mellitus, and morbid obesity who presented with DKA requiring ICU admission. On admission the patient was found to have a blood glucose of 494, bicarbonate 5, and anion gap of 32. The patient underwent aggressive IV fluid resuscitation and initiation of insulin drip with eventual resolution of DKA. Patient was successfully transferred to the floor for further management. The patient was counseled at length about the importance of medication compliance, following with a primary care provider, dietary changes, weight loss, and incorporating exercise. The patient expresses understanding. The patient is medically cleared for discharge. Care Plan Goals: Patient is medically clear for discharge. Assessment: Patient is a 25-year-old female with past medical history of gastritis, insulin- dependent type 2 diabetes mellitus, and morbid obesity who presented with DKA requiring ICU admission. On admission the patient was found to have a blood glucose of 494, bicarbonate 5, and anion gap of 32. The patient underwent aggressive IV fluid resuscitation and initiation of insulin drip with eventual resolution of DKA. Patient was successfully transferred to the floor for further management. The patient was counseled at length about the importance of medication compliance, following with a primary care provider, dietary changes, weight loss, and incorporating exercise. The patient expresses understanding. The patient is medically cleared for discharge. Follow up with: KAYLIN TURPIN MD [Primary Care Provider] - 3-5 Days ADENIKE BEY MD [Staff Physician] - 7 Days Forms: Work/School Release Form Prescriptions: Losartan [Cozaar] 50 mg PO QDAY #30 tablet NIFEdipine XL [Procardia Xl] 30 mg PO QDAY #30 tablet
== END 2021-06-03 12:30 | disposition home or self-care (01) | DRG 638 ==
LOC: ED 14:40 → CC1 23:14 → 3A 06-01 11:58
PROVIDERS: ADMIT Hospitalist; ATTEND Student in an Organized Health Care Education/Training Program
DX: E11.10 Type 2 diabetes mellitus with ketoacidosis without coma (principal); E44.1 Mild protein-calorie malnutrition; D72.829 Elevated white blood cell count, unspecified; K29.70 Gastritis, unspecified, without bleeding; I10 Essential (primary) hypertension; E87.6 Hypokalemia; E83.39 Other disorders of phosphorus metabolism; Z71.3 Dietary counseling and surveillance; Z68.35 Body mass index [BMI] 35.0-35.9, adult; E66.01 Morbid (severe) obesity due to excess calories; Z88.8 Allergy status to other drugs, medicaments and biological substances; Z79.84 Long term (current) use of oral hypoglycemic drugs; Z83.3 Family history of diabetes mellitus
CPT/HCPCS: 36415; 74177; 80048; 80053; 82805; 82962; 83036; 83690; 83735; 84100; 84703; 85007; 85025; 85027; 85610; G0378; J3480; J3490; J7070; J7510; Q0162; Q9967; J0780; J1200; J1644; J1650; J1815; J2270; J2543; J2765; J7030; J7040; J7120

== ENCOUNTER 2021-06-19 09:36 | Emergency (ER) | payer OTHER ==
--- NOTE | 2021-06-19 11:10 | Emergency Department Report ---
ED Dizziness HPI - General Chief Complaint: Dizziness Stated Complaint: NAUSEA/DIZZY/X 1 DAY Time Seen by Provider: 06/19/21 09:58 Source: patient Mode of arrival: Ambulatory Limitations: No Limitations - History of Present Illness Initial Comments: 25-year-old female comes to the ER complaining of dizziness this morning. She denies chest pain or shortness of breath. She denies fever or chills. Denies abdominal or back pain. She does endorse some nausea when she got dizzy. No vomiting. No headache. No photophobia. Denies any trauma. MD Complaint: dizziness -: Sudden Timing: sudden onset Description: "room spinning" History of Same: No History of Trauma: No Severity: mild Improves With: nothing Worsens With: nothing Associated Symptoms: denies other symptoms - Related Data Home Medications Medication Instructions Recorded Confirmed Last Taken Lantus Solostar 25 units SQ DAILY 06/01/21 06/01/21 Unknown Previous Rx's Medication Instructions Recorded Last Taken Type glipiZIDE [Glucotrol] 5 mg PO QDAY #30 tablet 09/06/18 Unknown Rx metFORMIN [Glucophage] 500 mg PO BID #60 tablet 09/06/18 Unknown Rx Famotidine [Pepcid] 40 mg PO QHS #10 tablet 09/13/18 Unknown Rx Losartan [Cozaar] 50 mg PO QDAY #30 tablet 06/03/21 Unknown Rx Metoclopramide HCl [Reglan TAB] 5 mg PO TIDAC PRN #30 tab 06/03/21 Unknown Rx NIFEdipine XL [Procardia Xl] 30 mg PO QDAY #30 tablet 06/03/21 Unknown Rx Allergies Allergy/AdvReac Type Severity Reaction Status Date / Time ondansetron [From Zofran] AdvReac Rash Verified 05/23/20 09:12 ED Review of Systems ROS: Stated complaint: NAUSEA/DIZZY/X 1 DAY Other details as noted in HPI Comment: All other systems reviewed and negative ED Past Medical Hx - Past Medical History Previous Medical History?: Yes Hx Hypertension: Yes Hx Congestive Heart Failure: No Hx Diabetes: Yes Hx Asthma: No Hx COPD: No - Surgical History Past Surgical History?: No - Family History Family history: no significant - Social History Smoking Status: Never Smoker - Medications Home Medications: Home Medications Medication Instructions Recorded Confirmed Last Taken Type glipiZIDE [Glucotrol] 5 mg PO QDAY #30 tablet 09/06/18 06/01/21 Unknown Rx metFORMIN [Glucophage] 500 mg PO BID #60 tablet 09/06/18 06/01/21 Unknown Rx Famotidine [Pepcid] 40 mg PO QHS #10 tablet 09/13/18 06/01/21 Unknown Rx Lantus Solostar 25 units SQ DAILY 06/01/21 06/01/21 Unknown History Losartan [Cozaar] 50 mg PO QDAY #30 tablet 06/03/21 Unknown Rx Metoclopramide HCl [Reglan TAB] 5 mg PO TIDAC PRN #30 tab 06/03/21 Unknown Rx NIFEdipine XL [Procardia Xl] 30 mg PO QDAY #30 tablet 06/03/21 Unknown Rx ED Physical Exam - General Limitations: No Limitations General appearance: alert, in no apparent distress - Head Head exam: Present: atraumatic, normocephalic - Eye Eye exam: Present: normal appearance - ENT ENT exam: Present: mucous membranes moist - Neck Neck exam: Present: normal inspection - Respiratory Respiratory exam: Present: normal lung sounds bilaterally. Absent: respiratory distress - Cardiovascular Cardiovascular Exam: Present: regular rate, normal rhythm. Absent: systolic murmur, diastolic murmur, rubs, gallop - GI/Abdominal GI/Abdominal exam: Present: soft, normal bowel sounds - Extremities Exam Extremities exam: Present: normal inspection - Back Exam Back exam: Present: normal inspection - Neurological Exam Neurological exam: Present: alert, oriented X3 - Psychiatric Psychiatric exam: Present: normal affect, normal mood - Skin Skin exam: Present: warm, dry, intact, normal color. Absent: rash ED Medical Decision Making - EKG Data EKG shows normal: sinus rhythm Rate: normal - EKG Data When compared to previous EKG there are: no significant change Interpretation: no acute changes - Medical Decision Making 1100 patient not in room 32 where I placed her. Registration says that she left. Vital signs normal as documented by RN manually - Differential Diagnosis vertigo/sinusitis Critical care attestation.: If time is entered above; I have spent that time in minutes in the direct care of this critically ill patient, excluding procedure time. ED Disposition Clinical Impression: Dizziness Disposition: LEFT WITHOUT BEING SEEN Is pt being admited?: No Condition: Stable Time of Disposition: 11:07
--- NOTE | 2021-06-20 20:18 | Electrocardiograph Report ---
[facility] Test Date: 2021-06-19 Test Time: 10:03:17 Pat Name: SULTANA AZUL Department: Room: Gender: F It Security Consulting Director: EASTON : 1995 Requested By: PADMINI ANNE Order Number: [id number] Reading MD: Pan Branch Measurements Intervals [place]ina Rate: 108 P: 59 NE: 160 QRS: 1 QRSD: 86 T: -1 QT: 343 QTc: 460 Interpretive Statements Sinus tachycardia Probable left atrial enlargement No previous ECG available for comparison Electronically Signed On 06-20-2021 20:18:16 EDT by Pan Branch
== END 2021-06-19 14:00 | disposition left against medical advice (07) ==
LOC: ED 09:36
DX: R42 Dizziness and giddiness (principal)
CPT/HCPCS: 93005

== ENCOUNTER 2021-07-02 10:29 | Outpatient (CLI) | payer OTHER ==
[2021-07-02 11:36] LABS: Blood Urea Nitrogen 8 mg/dL (7-17); Calcium 9.6 mg/dL (8.4-10.2); Chol/HDL Ratio 3.51 %; HDL Cholesterol 39 mg/dL (40-59); Hemolysis Index 7; LDL Cholesterol,Direct 67 mg/dL (50-130)
[2021-07-02 11:37] LABS: BUN/Creatinine Ratio 20
== END 2021-07-02 10:30 | disposition home or self-care (01) ==
LOC: LAB 10:29
PROVIDERS: ATTEND Internal Medicine
DX: E11.65 Type 2 diabetes mellitus with hyperglycemia (principal); E78.5 Hyperlipidemia, unspecified; E87.6 Hypokalemia
CPT/HCPCS: 36415; 80048; 80061; 83036